=== PATIENT | female | born 1960 | race Caucasian/White ===

== ENCOUNTER 2020-10-10 06:12 | Outpatient (REF) | payer OTHER, SELFPAY ==
[2020-10-10 11:32] LABS: Estimated Average Glucose 214 mg/dL; Hemoglobin A1c % 9.1 %
[2020-10-10 11:50] LABS: Alanine Aminotransferase 18 U/L (0-31); Anion Gap 16 (12-20); Aspartate Amino Transferase 16 U/L (5-31); Blood Urea Nitrogen 14 mg/dL (9-16); Calcium 9.6 mg/dL (8.4-10.2); Carbon Dioxide 27 mmol/L (22-29); Chloride 105 mmol/L (96-108); Cholesterol 199 mg/dL; Estimated Glomerular Filt Rate > 60; Glucose Fasting 162 mg/dL (60-99); HDL Cholesterol 48 mg/dL; LDL Cholesterol Calculated 113 mg/dl; Potassium 4.5 mmol/l (3.3-5.1); Sodium 143 mmol/L (135-145); Triglycerides 191 mg/dL
[2020-10-10 11:51] LABS: Creatinine Urine 56.44 mg/dL; Microalbum/Creatinine Ratio Ur 58.4 ug/mg cr
== END 2020-10-10 06:13 | disposition home or self-care (01) ==
LOC: HO.HMGCLDS 06:12
PROVIDERS: PCP Internal Medicine; Visit Provider Internal Medicine
DX: E11.29 Type 2 diabetes mellitus with other diabetic kidney complication (principal)
CPT/HCPCS: 80048; 80061; 82043; 83036; 84450; 84460

== ENCOUNTER 2020-10-18 13:38 | Outpatient (REF) | payer OTHER, SELFPAY | END 2020-10-18 13:39 | disposition home or self-care (01) | LOC: HO.LAB 13:38 | PROVIDERS: Visit Provider Nurse Practitioner Family | DX: Z20.828 Contact with and (suspected) exposure to other viral communicable diseases (principal) | CPT/HCPCS: U0003 ==

== ENCOUNTER 2020-10-19 11:33 | Outpatient (REF) | payer OTHER, SELFPAY | END 2020-10-19 11:34 | disposition home or self-care (01) | LOC: HO.MAMMO 11:33 | PROVIDERS: PCP Internal Medicine; Visit Provider Internal Medicine | DX: Z13.89 Encounter for screening for other disorder (principal) ==

== ENCOUNTER 2021-01-17 06:56 | Outpatient (REF) | payer OTHER, SELFPAY ==
[2021-01-17 11:54] LABS: Alanine Aminotransferase 18 U/L (0-31); Anion Gap 15 (12-20); Aspartate Amino Transferase 15 U/L (5-31); Blood Urea Nitrogen 12 mg/dL (9-16); Calcium 8.8 mg/dL (8.4-10.2); Carbon Dioxide 26 mmol/L (22-29); Chloride 106 mmol/L (96-108); Cholesterol 161 mg/dL; Estimated Glomerular Filt Rate > 60; Glucose Fasting 139 mg/dL (60-99); HDL Cholesterol 47 mg/dL; LDL Cholesterol Calculated 91 mg/dl; Potassium 4.2 mmol/L (3.3-5.1); Sodium 143 mmol/L (135-145); Triglycerides 115 mg/dL
[2021-01-17 11:56] LABS: Microalbum/Creatinine Ratio Ur 18.9 ug/mg cr
[2021-01-17 12:15] LABS: Estimated Average Glucose 197 mg/dL; Hemoglobin A1c % 8.5 %
== END 2021-01-17 06:57 | disposition home or self-care (01) ==
LOC: HO.HMGCLDS 06:56
PROVIDERS: PCP Internal Medicine; Visit Provider Internal Medicine
DX: E11.29 Type 2 diabetes mellitus with other diabetic kidney complication (principal); E11.65 Type 2 diabetes mellitus with hyperglycemia; E78.5 Hyperlipidemia, unspecified; I10 Essential (primary) hypertension
CPT/HCPCS: 36415; 80048; 80061; 82043; 83036; 84450; 84460

== ENCOUNTER 2021-03-28 16:09 | Outpatient (REF) | payer OTHER, SELFPAY ==
--- NOTE | ~2021-03-28 | MM_ITS ---
EXAMINATION: MM SCREENING DIGITAL BREAST TOMOSYNTHESIS, BILATERAL CLINICAL INFORMATION: Screening. Asymptomatic. The lifetime risk of breast cancer based on the Tyrer-Cuzick Model is 10%. COMPARISON: Mammography: 09/15/2019; outside exams 01/25/2017, 11/03/2015 ([facility]) TECHNIQUE: Digital breast tomosynthesis is performed in both the craniocaudal and mediolateral oblique views along with computer-aided detection (CAD). Synthesized 2D images are generated from the tomosynthesis. FINDINGS: There are scattered areas of fibroglandular density (ACR BI-RADS breast composition Category b). There are no significant masses, abnormal calcifications, or other abnormalities. Parenchymal pattern is similar to prior exams. Again, there are biopsy clip markers mid upper left breast and central outer right breast. No developing density. The axilla and skin contours are unremarkable. MM/MM tomosynthesis screening BI IMPRESSION: No mammographic evidence of malignancy. ASSESSMENT: BI-RADS 1: Negative RECOMMENDATION: Routine annual mammography screening. This patient's information was entered into a reminder system with a target due date for their next mammogram.
== END 2021-03-28 16:10 | disposition home or self-care (01) ==
LOC: HO.MAMMO 16:09
PROVIDERS: Visit Provider Internal Medicine
DX: Z12.31 Encounter for screening mammogram for malignant neoplasm of breast (principal)
CPT/HCPCS: 77063; 77067

== ENCOUNTER 2021-04-19 06:04 | Outpatient (REF) | payer OTHER, SELFPAY ==
[2021-04-19 11:56] LABS: Estimated Average Glucose 197 mg/dL; Hemoglobin A1c % 8.5 %
[2021-04-19 12:12] LABS: Alanine Aminotransferase 17 U/L (0-31); Anion Gap 15 (12-20); Aspartate Amino Transferase 13 U/L (5-31); Blood Urea Nitrogen 20 mg/dL (9-16); Calcium 9.7 mg/dL (8.4-10.2); Carbon Dioxide 26 mmol/L (22-29); Chloride 105 mmol/L (96-108); Cholesterol 169 mg/dL; Estimated Glomerular Filt Rate > 60; Glucose Fasting 142 mg/dL (60-99); HDL Cholesterol 52 mg/dL; LDL Cholesterol Calculated 98 mg/dl; Potassium 4.4 mmol/L (3.3-5.1); Sodium 142 mmol/L (135-145); Triglycerides 99 mg/dL
== END 2021-04-19 06:05 | disposition home or self-care (01) ==
LOC: HO.HMGCLDS 06:04
PROVIDERS: PCP Internal Medicine; Visit Provider Internal Medicine
DX: E11.65 Type 2 diabetes mellitus with hyperglycemia (principal); I10 Essential (primary) hypertension; E78.5 Hyperlipidemia, unspecified
CPT/HCPCS: 36415; 80048; 80061; 83036; 84450; 84460

== ENCOUNTER 2021-08-24 06:07 | Outpatient (REF) | payer OTHER, SELFPAY ==
[2021-08-24 11:45] LABS: Estimated Average Glucose 174 mg/dL; Hemoglobin A1c % 7.7 %
[2021-08-24 12:04] LABS: Alanine Aminotransferase 15 U/L (0-31); Anion Gap 13 (12-20); Aspartate Amino Transferase 15 U/L (5-31); Blood Urea Nitrogen 13 mg/dL (9-16); Calcium 9.3 mg/dL (8.4-10.2); Carbon Dioxide 24 mmol/L (22-29); Chloride 109 mmol/L (96-108); Cholesterol 143 mg/dL; Estimated Glomerular Filt Rate > 60; Glucose Fasting 128 mg/dL (60-99); HDL Cholesterol 55 mg/dL; LDL Cholesterol Calculated 73 mg/dl; Potassium 4.2 mmol/L (3.3-5.1); Sodium 142 mmol/L (135-145); Triglycerides 75 mg/dL
== END 2021-08-24 06:08 | disposition home or self-care (01) ==
LOC: HO.HMGCLDS 06:07
PROVIDERS: PCP Internal Medicine; Visit Provider Internal Medicine
DX: E11.65 Type 2 diabetes mellitus with hyperglycemia (principal); E78.5 Hyperlipidemia, unspecified; I10 Essential (primary) hypertension
CPT/HCPCS: 36415; 80048; 80061; 83036; 84450; 84460

== ENCOUNTER 2022-04-23 08:11 | Outpatient (REF) | payer OTHER, SELFPAY ==
[2022-04-23 11:50] LABS: Alanine Aminotransferase 17 U/L (0-31); Anion Gap 13 (12-20); Aspartate Amino Transferase 14 U/L (5-31); Blood Urea Nitrogen 17 mg/dL (9-16); Carbon Dioxide 26 mmol/L (22-29); Chloride 108 mmol/L (96-108); Cholesterol 170 mg/dL; Estimated Average Glucose 174 mg/dL; Estimated Glomerular Filt Rate > 60; Glucose Fasting 156 mg/dL (60-99); HDL Cholesterol 47 mg/dL; Hemoglobin A1c % 7.7 %; LDL Cholesterol Calculated 105 mg/dl; Potassium 4.3 mmol/L (3.3-5.1); Sodium 143 mmol/L (135-145); Triglycerides 94 mg/dL
[2022-04-23 12:13] LABS: Vitamin D 25-OH Total 34.6 ng/mL (>30)
== END 2022-04-23 08:12 | disposition home or self-care (01) ==
LOC: HO.HMGCLDS 08:11
PROVIDERS: PCP Internal Medicine; Visit Provider Internal Medicine
DX: E11.65 Type 2 diabetes mellitus with hyperglycemia (principal); E78.5 Hyperlipidemia, unspecified; I10 Essential (primary) hypertension
CPT/HCPCS: 36415; 80048; 80061; 82306; 83036; 84450; 84460

== ENCOUNTER 2022-07-30 06:29 | Outpatient (REF) | payer OTHER, SELFPAY ==
[2022-07-30 12:09] LABS: Estimated Average Glucose 180 mg/dL; Hemoglobin A1c % 7.9 %
[2022-07-30 12:35] LABS: Alanine Aminotransferase 14 U/L (0-31); Anion Gap 14 (12-20); Aspartate Amino Transferase 14 U/L (5-31); Blood Urea Nitrogen 18 mg/dL (9-16); Calcium 9.6 mg/dL (8.4-10.2); Carbon Dioxide 26 mmol/L (22-29); Chloride 106 mmol/L (96-108); Cholesterol 163 mg/dL; Estimated Glomerular Filt Rate > 60; Glucose Fasting 146 mg/dL (60-99); HDL Cholesterol 59 mg/dL; LDL Cholesterol Calculated 90 mg/dl; Sodium 142 mmol/L (135-145); Triglycerides 74 mg/dL
[2022-07-30 12:35] LABS: Creatinine Urine 42.47 mg/dL; Microalbum/Creatinine Ratio Ur 58.8 ug/mg cr
== END 2022-07-30 06:30 | disposition home or self-care (01) ==
LOC: HO.HMGCLDS 06:29
PROVIDERS: PCP Internal Medicine; Visit Provider Internal Medicine
DX: E11.29 Type 2 diabetes mellitus with other diabetic kidney complication (principal); E11.65 Type 2 diabetes mellitus with hyperglycemia; E78.5 Hyperlipidemia, unspecified; I10 Essential (primary) hypertension
CPT/HCPCS: 36415; 80048; 80061; 82043; 82550; 83036; 84450; 84460

== ENCOUNTER 2023-04-01 06:05 | Outpatient (REF) | payer OTHER, SELFPAY ==
[2023-04-01 11:39] LABS: Estimated Average Glucose 177 mg/dL; Hemoglobin A1c % 7.8 %
[2023-04-01 11:54] LABS: Alanine Aminotransferase 14 U/L (0-31); Anion Gap 12 (12-20); Aspartate Amino Transferase 14 U/L (5-31); Blood Urea Nitrogen 17 mg/dL (9-16); Calcium 9.5 mg/dL (8.4-10.2); Carbon Dioxide 27 mmol/L (22-29); Chloride 106 mmol/L (96-108); Cholesterol 160 mg/dL; Estimated Glomerular Filt Rate > 60; Glucose Fasting 145 mg/dL (60-99); HDL Cholesterol 54 mg/dL; LDL Cholesterol Calculated 89 mg/dl; Potassium 4.3 mmol/L (3.3-5.1); Sodium 141 mmol/L (135-145); Triglycerides 88 mg/dL
[2023-04-01 12:06] LABS: Creatinine Urine 63.57 mg/dL; Microalbum/Creatinine Ratio Ur 59.7 ug/mg cr
== END 2023-04-01 06:06 | disposition home or self-care (01) ==
LOC: HO.HMGCLDS 06:05
PROVIDERS: PCP Internal Medicine; Visit Provider Internal Medicine
DX: Z00.01 Encounter for general adult medical examination with abnormal findings (principal); E11.65 Type 2 diabetes mellitus with hyperglycemia; E78.5 Hyperlipidemia, unspecified; I10 Essential (primary) hypertension
CPT/HCPCS: 36415; 80048; 80061; 82043; 83036; 84450; 84460

== ENCOUNTER 2023-08-06 11:01 | Outpatient (AMB) | payer OTHER, SELFPAY ==
--- NOTE | 2023-08-06 11:12 | A.OFFPC_ITS ---
Vital Signs 08/06/23 11:29 Height 5 ft 10 in Weight 199 lb BMI 28.6 BP 120/70 Blood Pressure Location Rt brachial Position Sitting Pulse 64 Pulse Source Pulse Oximeter Pulse Oximetry (%) 96 Oxygen Delivery Method Room Air Intake Visit Reasons: PE Intake Note: Pt is here today for her PE Allergies No Known Allergies Allergy (Verified 08/06/23 11:35) Medication List - Last Reconciled 08/06/23 by Kimber Hermosillo MD empagliflozin (Jardiance) 25 mg PO QAM lisinopril 5 mg PO DAILY metformin 1,000 mg PO BID 30 days multivitamin 1 tab PO DAILY omega-3 fatty acids (Fish Oil Concentrate) 1,000 mg PO DAILY pioglitazone 15 mg PO DAILY 3 months simvastatin 20 mg PO BEDTIME Tobacco use date assessed: 08/06/23 Dental Screening Dental Screen Date: 08/06/23 Did you have a dental visit in the last 12 months?: Yes Did you have a dental problem in the last 6 months where you did not have access to dental care?: No Was dental information given to patient?: Patient has dentist HPI PE HPI Details 62-year-old lady here today for her phys ical exam. She has diabetes mellitus, dyslipidemia, hypertension, currently compliant with medications. She goes to Dr. Barber for her cervical cancer screening and pelvic exam, currently up-to-date. She is overdue for her screening mammogram, but up-to-date with her bone density scan done 12/10/2022, which showed osteopenia in AP spine, total hip and femoral neck. Cologuard test was supposed to be done in last year's physical but patient did not do test. [facility] Medical History (Updated 08/06/23 @ 12:08 by Kimber Hermosillo MD) Osteopenia of multiple sites Annual visit for general adult medical examination with abnormal findings URI (upper respiratory infection) Type 2 diabetes mellitus with hyperglycemia, without long-term current use of insulin Type 2 diabetes mellitus with other diabetic kidney complication White matter disease, unspecified Narrow angle glaucoma suspect of both eyes Essential hypertension Dyslipidemia Surgical History History of hand surgery History of colonoscopy Family History Father HTN (hypertension) Glaucoma History of CVA (cerebrovascular accident) Bladder cancer Stroke Mother HTN (hypertension) Seizure Brother No problems noted. Sister No problems noted. Sister No problems noted. Daughter No problems noted. Daughter No problems noted. Social History Housing: House Unable to assess alcohol history related to: Refusing to respond Alcohol intake: current Patient Tobacco Use Status: Former Tobacco user Years Smoked: 23 yrs e-Cigarette/Vaping Use: Never Used Current occupational status: employed Cognitive needs: No Hearing needs: No Vision needs: No Questionnaire PHQ-9 Over the last 2 weeks, how often have you been bothered by any of the following problems? 1. Little interest or pleasure in doing things: not at all 2. Feeling down, depressed, or hopeless: not at all 3. Trouble falling or staying asleep, or sleeping too much: not at all 4. Feeling tired or having little energy: not at all 5. Poor appetite or overeating: not at all 6. Feeling bad about yourself - or that you are a failure or have let yourself or your family down: not at all 7. Trouble concentrating on things, such as reading the newspaper or watching television: not at all 8. Moving or speaking so slowly that other people could have noticed. Or the opposite - being so fidgety or restless that you have been moving around a lot more than usual: not at all 9. Thoughts that you would be better off or of hurting yourself in some way: not at all Total score: 0 Depression Screening Interpretation: Negative 50963 - PHQ-9 Billing: Yes Source: Developed by Drs. Michael Whitten, Jasmine Rai, Derrick Youngblood and colleagues, with an educational jackie from [employer]. Thrive Questionnaire Date Thrive assessed: 08/06/23 I am a: Patient What is your living situation today?: I have a steady place to live Within the past 12 months, did the food you bought not last and you didn't have the money to get more?: Never true Within the past 12 months, did you worry whether your food would run out before you got money to buy more?: Never true Do you have trouble paying for medicines?: No Do you have trouble getting transportation to medical appointments?: No Do you have trouble paying your heating and electricity bill?: No Do you have trouble taking care of your child, family member or friend?: No Do you have trouble with day-to-day activities such as bathing, preparing meals, shopping, managing finances, etc.?: No Are you currently unemployed and looking for a job?: No Are you interested in more education?: No AUDIT C Alcohol Use Questionnaire (AUDIT-C) 1. How often do you have a drink containing alcohol?: Never Total Score: 0 JOSE MARTIN-7 AMB Questionnaire JOSE MARTIN-7 Date JOSE MARTIN - 7 assessed: 08/06/23 Feeling nervous, anxious, or on edge: 0 = Not at all Not being able to stop or control worryin = Not at all Worrying too much about different things: 0 = Not at all Trouble relaxin = Not at all Being so restless that it is hard to sit still: 0 = Not at all Becoming easily annoyed or irritable: 0 = Not at all Feeling afraid as if something awful might happen: 0 = Not at all Total JOSE MARTIN-7 score (0-4 normal; 5-9 mild; 10-14 moderate; 15-21 severe): 0 Source: Developed by Drs. Michael Whitten, Jasmine Rai, Derrick Youngblood and colleagues, with an educational jackie from [employer]. JOSE MARTIN-7 Assessment Billing JOSE MARTIN-7 Assessment Tool: JOSE MARTIN-7 Assessment 32091 Review of Systems Const Denies fatigue, Denies fever(s), Denies headache(s) and Denies weakness Eyes Details: Sees Dr. Lee for her routine eye exam and diabetes retinopathy screening Denies change in vision and Denies itchy eyes ENT Denies dizziness, Denies headache(s), Denies nasal congestion, Denies nasal discharge and Denies sore throat Card Denies chest pain, Denies lightheadedness, Denies palpitations and Denies dyspnea Resp Denies chest congestion, Denies cough, Denies dyspnea and Denies wheezing GI Denies abdominal pain, Denies change in bowel habits and Denies heartburn Denies hematuria, Denies urinary frequency, Denies dysuria and Denies urinary urgency Musc Reports as per HPI Skin/Breast Denies breast swelling, Denies breast pain, Denies breast mass, Denies lesions and Denies rash Neuro Denies dizziness, Denies headache(s) and Denies weakness Psych Reports no additional complaints Endo Denies fatigue, Denies polydipsia, Denies polyuria and Denies palpitations Juvenal/Lymph Denies easy bruising Aller/Immun Denies itchy eyes, Denies seasonal rhinorrhea and Denies wheezing Physical exam (Primary Care) Vital Signs: Last Vital Signs Pulse 64 08/06/23 11:29 BP 120/70 08/06/23 11:29 Pulse Ox 96 08/06/23 11:29 Oxygen Delivery Method Room Air 08/06/23 11:29 BMI result Body Mass Index 28.6 Tobacco/Smoking Status: Tobacco use Status Tobacco use date assessed 08/06/23 08/06/23 11:24 Patient Tobacco Use Status Former Tobacco user 08/06/23 11:13 e-Cigarette/Vaping Use Never Used 08/06/23 11:13 PHQ-9: PHQ-9 Score PHQ-9: Total score 0 08/06/23 12:09 Depression Screening Interpretation: Negative Thrive Assessment: Date of Thrive Assessment Date Thrive assessed 08/06/23 08/06/23 11:13 Const Other: Alert oriented x3 General: comfortable, no acute distress and alert Orientation/consciousness: patient oriented x3 Limitations: no limitations HENMT Ears: external ears normal General nose exam: Normal external nose present Mouth: oropharynx normal and moist mucous membranes Eyes General: appearance normal, both eyes and all related structures Pupils: Equal, round and reactive pupils present Neck Neck: Yes full ROM, Yes no lymphadenopathy and Yes supple Chest Breast/axilla palpation: normal palpation of the breasts Resp Effort & Inspection: normal respiratory effort and able to speak in complete sentences Auscultation: clear to auscultation bilaterally Cardio Rate: regular rate Rhythm: regular rhythm Heart sounds: S1 normal heart sound present and S2 normal heart sound present GI Palpation (GI): Soft to palpation, nontender and no masses Auscultation: normal bowel sounds General: Yes deferred (Sees Dr. Barber for her routine Pap and pelvic exam) Back/Spine/Pelvis Back: No back tenderness Skin General skin exam: no rashes or lesions noted Neuro General: patient oriented x3, gait normal, tone normal, moves all extremities, Normal light touch and pain sensation and no focal motor deficits Cranial nerves: Yes CN's II-XII intact bilaterally and Yes Equal, round and reactive pupils present Cognition (Neuro): normal cognition Extrem General: Yes full ROM, Yes no joint enlargement, Yes no clubbing, cyanosis or edema and Yes no calf tenderness Psych Appearance: grossly normal and well kempt Mental Status: mental status grossly normal Speech and movement: Normal speech and movement present Affect: normal affect Results AMB Hemoglobin A1c AMB Hemoglobin A1c 7.8 % Last Edit by Cathy Lobato CMA on 08/06/23 11:50 Results Reviewed Results Reviewed: Laboratory Last Values Hgb A1c (Clinic) 7.8 % (4.0-6.0) H 08/06/23 11:43 RUN: 08/06/23 1132 PAGE 1 [facility] [address] [place] [id number] Splitter Operator: Julio Cesar Shah M.D. Specimen Inquiry Name: Wandy Tsang Age/Sex: 62/F : 1960 Unit#: [id number] Attend Dr: Kimber Hermosillo MD Re04/01/23 Status: DEP [facility] Disch: SPEC : [id number] BETI: 04/01/23 STATUS: COMP REQ : [id number] RECD: 04/01/[address]: Kimber Hermosillo MD COMP: 04/01/23 ENTERED: 04/01/[address]: ORDERED: Met Prof Fast, AST, ALT, Lipid Panel Test Result Flag Reference Site Sodium 141 135-145 mmol/L Potassium 4.3 3.3-5.1 mmol/L CL 106 96-108 mmol/L CO2 27 22-29 mmol/L Gap 12 12-20 BUN 17 H 9-16 mg/dL Creat 0.73 0.5-1.4 mg/dL EGFR > 60 NOTE: For -[place] individuals, multiply the result by 1.210. Chronic Kidney Disease: Estimated GFR < 60 mL/min/1.73m2 Severe Kidney Disease: Estimated GFR < 15 mL/min/1.73m2 FBS 145 H 60-99 mg/dL A fasting glucose of 126 mg/dl or greater on more than one occasion is considered diagnostic of diabetes. CA 9.5 8.4-10.2 mg/dL AST (GOT) 14 5-31 U/L ALT (GPT) 14 0-31 U/L Triglyceride 88 mg/dL Desirable Triglyceride: less than 150 mg/dL Borderline High Triglyceride 150-199 mg/dL High Triglyceride: 200-499 mg/dL Very High Triglyceride: greater than or equal to 5OO mg/dL Chol 160 mg/dL Desirable Cholesterol: less than 200 mg/dL Borderline High Cholesterol: 200-239 mg/dL High Cholesterol: greater than 239 mg/dL LDL Calculated 89 mg/dl Desirable LDL: less than 100 mg/dL Near Optimal/Above Optimal LDL: 110-129 mg/dL Borderline High LDL: 130-159 mg/dL High LDL: 160-189 mg/dL Very High LDL: greater than or equal to 190 mg/dL HDL 54 mg/dL Desirable HDL: greater than 40 mg/dL Note: This HDL assay may give artificially low results in patients with liver disease. Laboratory Tests 04/01/23 06:20 Estimat Average Glucose 177 Hemoglobin A1c % 7.8 Assessment and Plan Assessment & Plan (1) Annual visit for general adult medical examination with abnormal findings: Code(s): Z00.01 - Encounter for general adult medical examination with abnormal findings Plan: Will check appropriate labs. Recommended dental visit every 6 months and regular eye exams, . Up-to-date with her diabetes retinopathy screening. Take adequate calcium in diet and vitamin-D 3 at 2000 IU per cap once a day, in addition to weight-bearing exercises to help maintain good muscle tone and weight control. Instructed to do self-breast exam, and continue to get yearly mammogram, up-to-date together with her bone density scan. Cologuard ordered last year, but patient did not do test, refuses to do screening colonoscopy. Reminded to get her yearly flu shot and COVID booster this coming up later this month. She is up-to-date with her pneumonia vaccine, and Tdap, advised to get vaccinated against herpes zoster (2) Essential hypertension: Code(s): I10 - Essential (primary) hypertension Plan: Blood pressure at goal of less than 130/80. Continue with lisinopril 5 mg daily Reinforced importance of following a low sodium diet, getting regular exercise, and lowering stress levels. (3) Dyslipidemia: Code(s): E78.5 - Hyperlipidemia, unspecified Plan: Repeat fasting lipid panel ordered today . Continue with simvastatin 20 mg at bedtime , in addition to adherence to low-cholesterol diet and regular exercise, at least 30 minutes 3 to 4 times a week. Advised patient to make healthy food choices, eat more fruits, vegetables, whole grains, wild caught fish and low-fat dairy. Limit amount of meat and fried or fatty food products, as well as processed foods and fast foods. Follow-up scheduled with repeat fasting lipid panel in months. (4) Type 2 diabetes mellitus with hyperglycemia, without long-term current use of insulin: Code(s): E11.65 - Type 2 diabetes mellitus with hyperglycemia Plan: Hemoglobin A1c drawn today is at 7.8%, unchanged from previous visits. Stressed importance of taking medications as directed, and adhering to recommended diet and getting regular exercise. Will repeat another hemoglobin A1c in 3 months Orders: Orders Lipid Panel 08/06/23 Z00.01 - Encounter for general adult medical examination with abnormal findings, E11.65 - Type 2 diabetes mellitus with hyperglycemia, I10 - Essential (primary) hypertension, E78.5 - Hyperlipidemia, unspecified, M85.89 - Other specified disorders of bone density and structure, multiple sites AMB Hemoglobin A1c 08/06/23 E11.29 - Type 2 diabetes mellitus with other diabetic kidney complication Alanine Aminotransferase 08/06/23 Z00.01 - Encounter for general adult medical examination with abnormal findings, E11.65 - Type 2 diabetes mellitus with hyperglycemia, I10 - Essential (primary) hypertension, E78.5 - Hyperlipidemia, unspecified, M85.89 - Other specified disorders of bone density and structure, multiple sites Aspartate Amino Transferase 08/06/23 Z00.01 - Encounter for general adult medical examination with abnormal findings, E11.65 - Type 2 diabetes mellitus with hyperglycemia, I10 - Essential (primary) hypertension, E78.5 - Hyperlipidemia, unspecified, M85.89 - Other specified disorders of bone density and structure, multiple sites Basic Metabolic Panel Fasting 08/06/23 Z00.01 - Encounter for general adult medical examination with abnormal findings, E11.65 - Type 2 diabetes mellitus with hyperglycemia, I10 - Essential (primary) hypertension, E78.5 - Hyperlipidemia, unspecified, M85.89 - Other specified disorders of bone density and structure, multiple sites Vitamin D 25-OH Total 08/06/23 Z00.01 - Encounter for general adult medical examination with abnormal findings, E11.65 - Type 2 diabetes mellitus with hyperglycemia, I10 - Essential (primary) hypertension, E78.5 - Hyperlipidemia, unspecified, M85.89 - Other specified disorders of bone density and structure, multiple sites Coding Level of Care Code Est Pt Prev Care 40-64y(59913) Diagnoses Annual visit for general adult medical examination with abnormal findings Z00.01 Essential hypertension I10 Dyslipidemia E78.5 Type 2 diabetes mellitus with hyperglycemia, without long-term current use of insulin E11.65 Additional Codes JOSE MARTIN-7 Assessment Billing - JOSE MARTIN-7 Assessment Tool: JOSE MARTIN-7 Assessment [id number] ([id number])
[2023-08-06 11:29] VITALS: BP 120/70; PULSE 64; O2SAT 96; BMI 28.6
== END 2023-08-06 12:41 | disposition home or self-care (01) ==
PROVIDERS: Visit Provider Internal Medicine
DX: E11.29 Type 2 diabetes mellitus with other diabetic kidney complication (principal)
CPT/HCPCS: 83036; 99396

== ENCOUNTER 2023-08-06 12:11 | Outpatient (REF) | payer OTHER, SELFPAY ==
[2023-08-06 14:13] LABS: Alanine Aminotransferase 17 U/L (0-31); Anion Gap 16 (12-20); Aspartate Amino Transferase 16 U/L (5-31); Blood Urea Nitrogen 13 mg/dL (9-16); Calcium 10.6 mg/dL (8.4-10.2); Carbon Dioxide 27 mmol/L (22-29); Chloride 106 mmol/L (96-108); Cholesterol 161 mg/dL (<200); Estimated Glomerular Filt Rate > 60; Glucose Fasting 111 mg/dL (60-99); HDL Cholesterol 58 mg/dL (>40); LDL Cholesterol Calculated 85 mg/dL (<100); Potassium 3.9 mmol/L (3.3-5.1); Sodium 145 mmol/L (135-145); Triglycerides 93 mg/dL (<150)
== END 2023-08-06 12:12 | disposition home or self-care (01) ==
LOC: HO.HMGCLDS 12:11
PROVIDERS: PCP Internal Medicine; Visit Provider Internal Medicine
DX: Z00.01 Encounter for general adult medical examination with abnormal findings (principal); E11.65 Type 2 diabetes mellitus with hyperglycemia; E78.5 Hyperlipidemia, unspecified; I10 Essential (primary) hypertension; M85.89 Other specified disorders of bone density and structure, multiple sites
CPT/HCPCS: 36415; 80048; 80061; 82306; 84450; 84460

== ENCOUNTER 2023-11-11 06:07 | Outpatient (REF) | payer OTHER, SELFPAY ==
[2023-11-11 11:34] LABS: Estimated Average Glucose 194 mg/dL; Hemoglobin A1c % 8.4 % (<6.0)
[2023-11-11 12:02] LABS: Alanine Aminotransferase 16 U/L (0-31); Aspartate Amino Transferase 15 U/L (5-31); Cholesterol 154 mg/dL (<200); HDL Cholesterol 51 mg/dL (>40); LDL Cholesterol Calculated 88 mg/dL (<100); Triglycerides 75 mg/dL (<150)
[2023-11-12 15:28] LABS: Calcium, Ionized 5.1 mg/dL (4.7-5.5)
== END 2023-11-11 06:08 | disposition home or self-care (01) ==
LOC: HO.HMGCLDS 06:07
PROVIDERS: PCP Internal Medicine; Visit Provider Internal Medicine
DX: I10 Essential (primary) hypertension (principal); E78.5 Hyperlipidemia, unspecified; E11.29 Type 2 diabetes mellitus with other diabetic kidney complication; E11.65 Type 2 diabetes mellitus with hyperglycemia
CPT/HCPCS: 36415; 80061; 82330; 83036; 84450; 84460

== ENCOUNTER 2023-11-13 15:05 | Outpatient (AMB) | payer OTHER, SELFPAY ==
[2023-11-13 15:12] VITALS: BP 122/74; PULSE 59; O2SAT 99; BMI 28.9
--- NOTE | 2023-11-13 15:12 | A.OFFPC_ITS ---
Vital Signs 11/13/23 15:12 Height 5 ft 10 in Weight 201 lb 4 oz BMI 28.9 BP 122/74 Blood Pressure Location Lt brachial Position Sitting Pulse 59 Pulse Source Pulse Oximeter Pulse Oximetry (%) 99 Oxygen Delivery Method Room Air Intake Visit Reasons: 3 month fu Intake Note: Pt is here to follow up for lab results pt had the flu vaccine at work and will send via portal the date Allergies No Known Allergies Allergy (Verified 11/13/23 15:30) Medication List - Last Reconciled 11/13/23 by Kimber Hermosillo MD empagliflozin (Jardiance) 25 mg PO QAM lisinopril 5 mg PO DAILY metformin 1,000 mg PO BID multivitamin 1 tab PO DAILY omega-3 fatty acids (Fish Oil Concentrate) 1,000 mg PO DAILY pioglitazone 15 mg PO DAILY 3 months simvastatin 20 mg PO BEDTIME Tobacco use date assessed: 11/13/23 Dental Screening Dental Screen Date: 11/13/23 Did you have a dental visit in the last 12 months?: No Did you have a dental problem in the last 6 months where you did not have access to dental care?: No Was dental information given to patient?: No HPI 3 month fu HPI Details 62-year-old lady with hypertension, dysl ipidemia and diabetes mellitus, here today for follow-up. She has been taking her medications as directed, but has not been paying attention to her diet and has not been getting any regular exercise. Latest fasting glucose and hemoglobin A1c is higher than last check, but lipids are within normal limits. She sees Dr. Lee yearly for her diabetes retinopathy screening. [facility] Medical History Osteopenia of multiple sites Annual visit for general adult medical examination with abnormal findings URI (upper respiratory infection) Type 2 diabetes mellitus with hyperglycemia, without long-term current use of insulin Type 2 diabetes mellitus with other diabetic kidney complication White matter disease, unspecified Narrow angle glaucoma suspect of both eyes Essential hypertension Dyslipidemia Surgical History History of hand surgery History of colonoscopy Family History Father HTN (hypertension) Glaucoma History of CVA (cerebrovascular accident) Bladder cancer Stroke Mother HTN (hypertension) Seizure Brother No problems noted. Sister No problems noted. Sister No problems noted. Daughter No problems noted. Daughter No problems noted. Social History Housing: House Unable to assess alcohol history related to: Refusing to respond Alcohol intake: current Patient Tobacco Use Status: Former Tobacco user Years Smoked: 23 yrs e-Cigarette/Vaping Use: Never Used Current occupational status: employed Cognitive needs: No Hearing needs: No Vision needs: No Questionnaire PHQ-9 Over the last 2 weeks, how often have you been bothered by any of the following problems? Depression Screening Interpretation: Negative Depression Screening Done: Yes Source: Developed by Drs. Michael Whitten, Jasmine Rai, Derrick Youngblood and colleagues, with an educational jackie from [employer]. Thrive Questionnaire Date Thrive assessed: 08/06/23 JOSE MARTIN-7 AMB Questionnaire JOSE MARTIN-7 Date JOSE MARTIN - 7 assessed: 08/06/23 Source: Developed by Drs. Michael Whitten, Jasmine Rai, Derrick Youngblood and colleagues, with an educational jackie from [employer]. Review of Systems Const Denies fatigue, Denies fever(s), Denies headache(s) and Denies weakness Eyes Details: Sees Dr. Lee for her routine eye exam and diabetes retinopathy screening Denies change in vision and Denies itchy eyes ENT Denies dizziness, Denies headache(s), Denies nasal congestion, Denies nasal discharge and Denies sore throat Card Denies chest pain, Denies lightheadedness, Denies palpitations and Denies dyspnea Resp Denies chest congestion, Denies cough, Denies dyspnea and Denies wheezing GI Denies abdominal pain, Denies change in bowel habits and Denies heartburn Denies hematuria, Denies urinary frequency, Denies dysuria and Denies urinary urgency Musc Reports as per HPI Skin/Breast Denies breast swelling, Denies breast pain, Denies breast mass, Denies lesions and Denies rash Neuro Denies dizziness, Denies headache(s) and Denies weakness Psych Reports no additional complaints Endo Denies fatigue, Denies polydipsia, Denies polyuria and Denies palpitations Juvenal/Lymph Denies easy bruising Aller/Immun Denies itchy eyes, Denies seasonal rhinorrhea and Denies wheezing Physical exam (Primary Care) Vital Signs: Last Vital Signs Pulse 59 11/13/23 15:12 BP 122/74 11/13/23 15:12 Pulse Ox 99 11/13/23 15:12 Oxygen Delivery Method Room Air 11/13/23 15:12 BMI result Body Mass Index 28.9 Tobacco/Smoking Status: Tobacco use Status Tobacco use date assessed 11/13/23 11/13/23 15:18 Patient Tobacco Use Status Former Tobacco user 11/13/23 15:12 e-Cigarette/Vaping Use Never Used 11/13/23 15:12 Depression Screening Interpretation: Negative Thrive Assessment: Date of Thrive Assessment Date Thrive assessed 08/06/23 11/13/23 15:12 Const Other: Alert oriented x3 General: comfortable, no acute distress and alert Orientation/consciousness: patient oriented x3 Limitations: no limitations HENMT Ears: external ears normal General nose exam: Normal external nose present Mouth: oropharynx normal and moist mucous membranes Eyes General: appearance normal, both eyes and all related structures Pupils: Equal, round and reactive pupils present Neck Neck: Yes full ROM, Yes no lymphadenopathy and Yes supple Resp Effort & Inspection: normal respiratory effort and able to speak in complete sentences Auscultation: clear to auscultation bilaterally Cardio Rate: regular rate Rhythm: regular rhythm Heart sounds: S1 normal heart sound present and S2 normal heart sound present GI Palpation (GI): Soft to palpation, nontender and no masses Auscultation: normal bowel sounds Skin General skin exam: no rashes or lesions noted Neuro General: patient oriented x3, gait normal, tone normal, moves all extremities, Normal light touch and pain sensation and no focal motor deficits Cranial nerves: Yes CN's II-XII intact bilaterally and Yes Equal, round and reactive pupils present Cognition (Neuro): normal cognition Extrem General: Yes full ROM, Yes no joint enlargement, Yes no clubbing, cyanosis or edema and Yes no calf tenderness Results Reviewed Results Reviewed: Laboratory Tests 04/23/22 07/30/22 11/11/23 08:21 07:00 06:20 Sodium 143 142 Potassium 4.3 4.0 Chloride 106 Carbon Dioxide 26 Anion Gap 14 BUN 17 H 18 H Creatinine 0.74 0.71 Estimated GFR > 60 > 60 Fasting Glucose 156 H 146 H Estimat Average Glucose 174 180 194 Hemoglobin A1c % 7.7 7.9 8.4 H Calcium 10.0 D 9.6 Ionized Calcium 5.1 AST 14 14 ALT 17 14 Total Creatine Kinase 52 Triglycerides 94 74 Cholesterol 170 163 LDL Cholesterol, Calc 105 90 HDL Cholesterol 47 59 D 25-OH Vitamin D Total 34.6 Name: Wandy Tsang Age/Sex: 62/F : 1960 Unit#: [id number] Attend Dr: Kimber Hermosillo MD Re11/11/23 Status: DEP REF Location: [facility] Disch: SPEC : [id number] BETI: 11/11/23 STATUS: COMP REQ : [id number] RECD: 11/11/[address]: Kimber Hermosillo MD COMP: 11/11/23 ENTERED: 11/11/[address]: ORDERED: AST, ALT, Lipid Panel Test Result Flag Reference Site AST (GOT) 15 5-31 U/L ALT (GPT) 16 0-31 U/L Triglyceride 75 <150 mg/dL Desirable Triglyceride: less than 150 mg/dL Borderline High Triglyceride 150-199 mg/dL High Triglyceride: 200-499 mg/dL Very High Triglyceride: greater than or equal to 5OO mg/dL Cholesterol 154 <200 mg/dL Desirable Cholesterol: less than 200 mg/dL Borderline High Cholesterol: 200-239 mg/dL High Cholesterol: greater than 239 mg/dL LDL Calculated 88 <100 mg/dL Desirable LDL: less than 100 mg/dL Near Optimal/Above Optimal LDL: 110-129 mg/dL Borderline High LDL: 130-159 mg/dL High LDL: 160-189 mg/dL Very High LDL: greater than or equal to 190 mg/dL HDL 51 >40 mg/dL Desirable HDL: greater than 40 mg/dL Note: This HDL assay may give artificially low results in patients with liver disease. Assessment and Plan Assessment & Plan (1) Type 2 diabetes mellitus with hyperglycemia, without long-term current use of insulin: Code(s): E11.65 - Type 2 diabetes mellitus with hyperglycemia Plan: Diabetes mellitus poorly controlled, now with A1c at 8.4%. Will continue on metformin and Jardiance at same dose, but pioglitazone dose increased to 30 mg daily. Stressed importance of adhering to recommended diet and getting regular exercise. Up-to-date with her diabetes retinopathy screening. Will see her back for follow-up after fasting labs done in March 2024 (2) Essential hypertension: Code(s): I10 - Essential (primary) hypertension Plan: Blood pressure at goal of less than 130/80. Continue with current medication. Reinforced importance of following a low sodium diet, getting regular exercise, and lowering stress levels. (3) Dyslipidemia: Code(s): E78.5 - Hyperlipidemia, unspecified Plan: Fasting lipids are within normal limits, continued on simvastatin 20 mg at bedtime recheck fasting lipids in March 2024 Orders: Orders Hemoglobin A1c 03/01/24 E11.65 - Type 2 diabetes mellitus with hyperglycemia, E78.5 - Hyperlipidemia, unspecified, I10 - Essential (primary) hypertension Aspartate Amino Transferase 03/01/24 E11.65 - Type 2 diabetes mellitus with hyperglycemia, E78.5 - Hyperlipidemia, unspecified, I10 - Essential (primary) hypertension Basic Metabolic Panel Fasting 03/01/24 E11.65 - Type 2 diabetes mellitus with hyperglycemia, E78.5 - Hyperlipidemia, unspecified, I10 - Essential (primary) hypertension Lipid Panel 03/01/24 E11.65 - Type 2 diabetes mellitus with hyperglycemia, E78.5 - Hyperlipidemia, unspecified, I10 - Essential (primary) hypertension Microalbumin, Random (w Creat) 03/01/24 E11.65 - Type 2 diabetes mellitus with hyperglycemia, E78.5 - Hyperlipidemia, unspecified, I10 - Essential (primary) hypertension Alanine Aminotransferase 03/01/24 E11.65 - Type 2 diabetes mellitus with hyperglycemia, E78.5 - Hyperlipidemia, unspecified, I10 - Essential (primary) hypertension Medications: Changed From pioglitazone 15 mg PO DAILY 3 months 90 tabs 1RF E11.65 - Type 2 diabetes mellitus with hyperglycemia To pioglitazone 30 mg PO DAILY 3 months 90 tabs 1RF E11.65 - Type 2 diabetes mellitus with hyperglycemia Refilled lisinopril 5 mg PO DAILY 90 caps 4RF Coding Level of Care Code Est Pt Level 4 (27052) Diagnoses Type 2 diabetes mellitus with hyperglycemia, without long-term current use of in sulin E11.65 Essential hypertension I10 Dyslipidemia E78.5
== END 2023-11-13 15:53 | disposition home or self-care (01) ==
PROVIDERS: PCP Internal Medicine; Visit Provider Internal Medicine
DX: E11.65 Type 2 diabetes mellitus with hyperglycemia (principal); I10 Essential (primary) hypertension; E78.5 Hyperlipidemia, unspecified
CPT/HCPCS: 99214

== ENCOUNTER 2024-01-01 10:26 | Outpatient (AMB) | payer OTHER, SELFPAY ==
[2024-01-01 10:28] VITALS: BP 120/76; PULSE 85; TEMP 36.4; O2SAT 97; BMI 28.6
--- NOTE | 2024-01-01 10:28 | AM.OFFWIN_ITS ---
Intake Vital Signs 01/01/24 10:28 Height 5 ft 10 in Weight 199 lb BMI 28.6 BP 120/76 Blood Pressure Location Lt brachial Position Sitting Pulse 85 Pulse Source Pulse Oximeter Temp 97.6 F Temp Source Temporal Artery Scan Pulse Oximetry (%) 97 Oxygen Delivery Method Room Air Intake Visit Reasons: EP Cough, headache, congestion [phone] Intake Note: pt is here today for cough headache congestion started friday Patient Tobacco Use Status: Former Tobacco user Allergies No Known Allergies Allergy (Verified 01/01/24 10:30) Do you need a note to return to daycare/school/sports/work: Yes (RETURN FRIDAY) Return to daycare/school/sports/work/other note: work HPI HPI Comments History of Present Illness Details 63 y/o female patient who presents to [facility] in clinic with c/o URI symptoms. She reports cough, chest tightness, headache and fatigue. Reports that symptoms started Friday. [facility] Medical History Osteopenia of multiple sites Annual visit for general adult medical examination with abnormal findings URI (upper respiratory infection) Type 2 diabetes mellitus with hyperglycemia, without long-term current use of insulin Type 2 diabetes mellitus with other diabetic kidney complication White matter disease, unspecified Narrow angle glaucoma suspect of both eyes Essential hypertension Dyslipidemia Surgical History History of hand surgery History of colonoscopy Family History Father HTN (hypertension) Glaucoma History of CVA (cerebrovascular accident) Bladder cancer Stroke Mother HTN (hypertension) Seizure Brother No problems noted. Sister No problems noted. Sister No problems noted. Daughter No problems noted. Daughter No problems noted. Social History Housing: House Unable to assess alcohol history related to: Refusing to respond Alcohol intake: current Patient Tobacco Use Status: Former Tobacco user Years Smoked: 23 yrs e-Cigarette/Vaping Use: Never Used Current occupational status: employed Cognitive needs: No Hearing needs: No Vision needs: No Review of Systems Const All systems reviewed & are unremarkable except as noted in HPI and below Physical Exam Vital Signs: Last Vital Signs Temp 97.6 F 01/01/24 10:28 Pulse 85 01/01/24 10:28 BP 120/76 01/01/24 10:28 Pulse Ox 97 01/01/24 10:28 Oxygen Delivery Method Room Air 01/01/24 10:28 BMI result Body Mass Index 28.6 Const General: comfortable HEENT Head: Yes normocephalic Ears: external ears normal and TM's normal bilaterally General nose exam: Normal external nose present and Normal nasal mucous membranes and turbinates present Face and sinus: Yes sinuses nontender Mouth: oropharynx normal and moist mucous membranes Throat: Yes posterior oropharynx normal and Yes uvula midline Resp Effort & Inspection: normal respiratory effort Auscultation: clear to auscultation bilaterally Cardio Rate: regular rate Rhythm: regular rhythm Assessment & Plan Assessment & Plan (1) Upper respiratory infection: Code(s): J06.9 - Acute upper respiratory infection, unspecified Qualifiers: Pharyngitis/tonsillitis etiology: other specified organisms URI type: acute pharyngitis Qualified Code(s): J02.8 - Acute pharyngitis due to other specified organisms Plan: - Rest - Warm fluids - OTC cold remedies. Orders: Orders SARS-CoV2/FLU/RSV Today J02.8 - Acute pharyngitis due to other specified organisms Coding Level of Care Code Est Pt Level 3 (60568) Diagnoses Acute pharyngitis due to other specified organisms J02.8 Pharyngitis/tonsillitis etiology: other specified organisms URI type: acute pharyngitis Time Spent (min) 15
== END 2024-01-01 11:12 | disposition home or self-care (01) ==
PROVIDERS: PCP Internal Medicine; Visit Provider Nurse Practitioner Family
DX: J02.9 Acute pharyngitis, unspecified (principal)
CPT/HCPCS: 99213

== ENCOUNTER 2024-01-01 13:20 | Outpatient (REF) | payer OTHER, SELFPAY ==
[2024-01-01 14:25] LABS: Influenza A PCR NEGATIVE (Negative); Influenza B PCR NEGATIVE (Negative); Resp Syncy Virus RNA Qual PCR NEGATIVE (Negative); SARS COV2 PCR INHOUSE NEGATIVE (Negative)
== END 2024-01-01 13:21 | disposition home or self-care (01) ==
LOC: HO.LNP 13:20
PROVIDERS: Visit Provider Nurse Practitioner Family
DX: Z11.52 Encounter for screening for COVID-19 (principal); Z20.822 Contact with and (suspected) exposure to COVID-19; J02.8 Acute pharyngitis due to other specified organisms
CPT/HCPCS: 0241U

== ENCOUNTER 2024-03-16 06:03 | Outpatient (REF) | payer OTHER, SELFPAY ==
[2024-03-16 10:57] LABS: Estimated Average Glucose 192 mg/dL; Hemoglobin A1c % 8.3 % (<6.0)
[2024-03-16 11:02] LABS: Alanine Aminotransferase 16 U/L (0-31); Anion Gap 12 (12-20); Aspartate Amino Transferase 13 U/L (5-31); Blood Urea Nitrogen 16 mg/dL (9-16); Calcium 9.6 mg/dL (8.4-10.2); Carbon Dioxide 27 mmol/L (22-29); Chloride 105 mmol/L (96-108); Cholesterol 153 mg/dL (<200); Estimated Glomerular Filt Rate > 60; Glucose Fasting 140 mg/dL (60-99); HDL Cholesterol 48 mg/dL (>40); LDL Cholesterol Calculated 80 mg/dL (<100); Potassium 3.6 mmol/L (3.3-5.1); Sodium 140 mmol/L (135-145); Triglycerides 125 mg/dL (<150)
[2024-03-16 11:04] LABS: Microalbum/Creatinine Ratio Ur 37.2 ug/mg cr (<30)
== END 2024-03-16 06:04 | disposition home or self-care (01) ==
LOC: HO.HMGCLDS 06:03
PROVIDERS: PCP Internal Medicine; Visit Provider Internal Medicine
DX: E11.65 Type 2 diabetes mellitus with hyperglycemia (principal); I10 Essential (primary) hypertension; E78.5 Hyperlipidemia, unspecified
CPT/HCPCS: 36415; 80048; 80061; 82043; 82570; 83036; 84450; 84460

== ENCOUNTER 2024-03-23 10:02 | Outpatient (AMB) | payer OTHER, SELFPAY ==
--- NOTE | 2024-03-23 10:10 | A.OFFPC_ITS ---
Vital Signs 03/23/24 10:21 Height 5 ft 10 in Weight 202 lb BMI 29.0 BP 118/60 Blood Pressure Location Rt brachial Position Sitting Pulse 78 Pulse Source Pulse Oximeter Pulse Oximetry (%) 96 Oxygen Delivery Method Room Air Intake Visit Reasons: f/u labs Intake Note: Pt is here today for her f/u labs Allergies No Known Allergies Allergy (Verified 03/23/24 10:50) Medication List - Last Reconciled 03/23/24 by Kimber Hermosillo MD empagliflozin (Jardiance) 25 mg PO QAM lisinopril 5 mg PO DAILY metformin 1,000 mg PO BID multivitamin 1 tab PO DAILY omega-3 fatty acids (Fish Oil Concentrate) 1,000 mg PO DAILY pioglitazone 15 mg PO DAILY simvastatin 20 mg PO BEDTIME Tobacco use date assessed: 03/23/24 Dental Screening Dental Screen Date: 03/23/24 HPI f/u labs HPI Details 63-year-old lady here today for follow-u p on her diabetes mellitus, hypertension hyperlipidemia. Has been compliant with taking all her medications but admits to not following recommended diet, works in the kitchen and snacks frequently. She also has not been getting any regular exercise lately. She also forgot that she was supposed to take 30 mg of pioglitazone instead of 15 mg daily. [facility] Medical History Osteopenia of multiple sites Annual visit for general adult medical examination with abnormal findings URI (upper respiratory infection) Type 2 diabetes mellitus with hyperglycemia, without long-term current use of insulin Type 2 diabetes mellitus with other diabetic kidney complication White matter disease, unspecified Narrow angle glaucoma suspect of both eyes Essential hypertension Dyslipidemia Surgical History History of hand surgery History of colonoscopy Family History Father HTN (hypertension) Glaucoma History of CVA (cerebrovascular accident) Bladder cancer Stroke Mother HTN (hypertension) Seizure Brother No problems noted. Sister No problems noted. Sister No problems noted. Daughter No problems noted. Daughter No problems noted. Social History Housing: House Unable to assess alcohol history related to: Refusing to respond Alcohol intake: current Patient Tobacco Use Status: Former Tobacco user Years Smoked: 23 yrs e-Cigarette/Vaping Use: Never Used Current occupational status: employed Cognitive needs: No Hearing needs: No Vision needs: No Questionnaire PHQ-9 Over the last 2 weeks, how often have you been bothered by any of the following problems? 1. Little interest or pleasure in doing things: not at all 2. Feeling down, depressed, or hopeless: not at all 3. Trouble falling or staying asleep, or sleeping too much: not at all 4. Feeling tired or having little energy: not at all 5. Poor appetite or overeating: not at all 6. Feeling bad about yourself - or that you are a failure or have let yourself or your family down: not at all 7. Trouble concentrating on things, such as reading the newspaper or watching television: not at all 8. Moving or speaking so slowly that other people could have noticed. Or the opposite - being so fidgety or restless that you have been moving around a lot more than usual: not at all 9. Thoughts that you would be better off or of hurting yourself in some way: not at all Total score: 0 Depression Screening Interpretation: Negative Depression Screening Done: Yes 54110 - PHQ-9 Billing: Yes Source: Developed by Drs. Michael Whitten, Jasmine Rai, Derrick Youngblood and colleagues, with an educational jackie from [employer]. Thrive Questionnaire Date Thrive assessed: 03/23/24 I am a: Patient What is your living situation today?: I have a steady place to live Within the past 12 months, did the food you bought not last and you didn't have the money to get more?: Never true Within the past 12 months, did you worry whether your food would run out before you got money to buy more?: Never true Do you have trouble paying for medicines?: No Do you have trouble getting transportation to medical appointments?: No Do you have trouble paying your heating and electricity bill?: No Do you have trouble taking care of your child, family member or friend?: No Do you have trouble with day-to-day activities such as bathing, preparing meals, shopping, managing finances, etc.?: No Are you currently unemployed and looking for a job?: No Are you interested in more education?: No THRIVE Score: 0 AUDIT C Alcohol Use Questionnaire (AUDIT-C) 1. How often do you have a drink containing alcohol?: Monthly or less 2. How many drinks containing alcohol do you have on a typical day when you are drinking?: 1 or 2 3. How often do you have six or more drinks on one occasion?: Never Total Score: 1 JOSE MARTIN-7 AMB Questionnaire JOSE MARTIN-7 Date JOSE MARTIN - 7 assessed: 03/23/24 Feeling nervous, anxious, or on edge: 0 = Not at all Not being able to stop or control worryin = Not at all Worrying too much about different things: 0 = Not at all Trouble relaxin = Not at all Being so restless that it is hard to sit still: 0 = Not at all Becoming easily annoyed or irritable: 0 = Not at all Feeling afraid as if something awful might happen: 0 = Not at all Total JOSE MARTIN-7 score (0-4 normal; 5-9 mild; 10-14 moderate; 15-21 severe): 0 Source: Developed by Drs. Michael Whitten, Jasmine Rai, Derrick Youngblood and colleagues, with an educational jackie from [employer]. JOSE MARTIN-7 Assessment Billing JOSE MARTIN-7 Assessment Tool: JOSE MARTIN-7 Assessment 48150 Review of Systems Const All systems reviewed & are unremarkable except as noted in HPI and below Denies fatigue, Denies fever(s), Denies headache(s) and Denies weakness Eyes Details: Sees Dr. Lee for her routine eye exam and diabetes retinopathy screening Denies change in vision and Denies itchy eyes ENT Denies dizziness, Denies headache(s), Reports nasal congestion, Reports nasal discharge, Reports post nasal drip, Denies sinus pain, Denies sinus pressure and Denies sore throat Card Denies chest pain, Denies lightheadedness, Denies palpitations and Denies dyspnea Resp Denies chest congestion, Denies cough, Denies dyspnea and Denies wheezing GI Denies abdominal pain, Denies change in bowel habits and Denies heartburn Denies hematuria, Denies urinary frequency, Denies dysuria and Denies urinary urgency Musc Reports as per HPI Skin/Breast Denies breast swelling, Denies breast pain, Denies breast mass, Denies lesions and Denies rash Neuro Denies dizziness, Denies headache(s) and Denies weakness Psych Reports no additional complaints Endo Denies fatigue, Denies polydipsia, Denies polyuria and Denies palpitations Juvenal/Lymph Denies easy bruising Aller/Immun Denies itchy eyes, Denies seasonal rhinorrhea and Denies wheezing Physical exam (Primary Care) Vital Signs: Last Vital Signs Pulse 78 03/23/24 10:21 BP 118/60 03/23/24 10:21 Pulse Ox 96 03/23/24 10:21 Oxygen Delivery Method Room Air 03/23/24 10:21 BMI result Body Mass Index 29.0 Tobacco/Smoking Status: Tobacco use Status Tobacco use date assessed 03/23/24 03/23/24 10:30 Patient Tobacco Use Status Former Tobacco user 03/23/24 10:10 e-Cigarette/Vaping Use Never Used 03/23/24 10:10 PHQ-9: PHQ-9 Score PHQ-9: Total score 0 03/23/24 10:49 Depression Screening Interpretation: Negative Thrive Assessment: Date of Thrive Assessment Date Thrive assessed 03/23/24 03/23/24 10:22 Const Other: Alert oriented x3 General: comfortable, no acute distress and alert Orientation/consciousness: patient oriented x3 HENMT Ears: external ears normal General nose exam: Normal external nose present and Abnormal mucous membranes and turbinates present boggy and pale Mouth: oropharynx normal and moist mucous membranes Eyes General: appearance normal, both eyes and all related structures Pupils: Equal, round and reactive pupils present Neck Neck: Yes full ROM, Yes no lymphadenopathy and Yes supple Resp Effort & Inspection: normal respiratory effort and able to speak in complete sentences Auscultation: clear to auscultation bilaterally Cardio Rate: regular rate Rhythm: regular rhythm Heart sounds: S1 normal heart sound present and S2 normal heart sound present GI Palpation (GI): Soft to palpation, nontender and no masses Auscultation: normal bowel sounds Skin General skin exam: no rashes or lesions noted Neuro General: patient oriented x3, gait normal, tone normal, moves all extremities, Normal light touch and pain sensation and no focal motor deficits Cranial nerves: Yes CN's II-XII intact bilaterally and Yes Equal, round and reactive pupils present Cognition (Neuro): normal cognition Extrem General: Yes full ROM, Yes no joint enlargement, Yes no clubbing, cyanosis or edema and Yes no calf tenderness Psych Appearance: grossly normal and well kempt Mental Status: mental status grossly normal Speech and movement: Normal speech and movement present Affect: normal affect Results Reviewed Results Reviewed: Name: Wandy Tsang Age/Sex: 63/F : 1960 Unit#: [id number] Attend Dr: Kimber Hermosillo MD Re03/16/24 Status: DEP REF Location: [facility] Disch: SPEC : [id number] BETI: 03/16/24 STATUS: COMP REQ : [id number] RECD: 03/16/24-[address]: Kimber Hermosillo MD COMP: 03/16/24 ENTERED: 03/16/24-[address]: ORDERED: Met Prof Fast, AST, ALT, Lipid Panel Test Result Flag Reference Sodium 140 135-145 mmol/L Potassium 3.6 3.3-5.1 mmol/L CL 105 96-108 mmol/L CO2 27 22-29 mmol/L Gap 12 12-20 BUN 16 9-16 mg/dL Creat 0.70 0.5-1.4 mg/dL EGFR > 60 NOTE: For -Japanese individuals, multiply the result by 1.210. Chronic Kidney Disease: Estimated GFR < 60 mL/min/1.73m2 Severe Kidney Disease: Estimated GFR < 15 mL/min/1.73m2 FBS 140 H 60-99 mg/dL A fasting glucose of 126 mg/dl or greater on more than one occasion is considered diagnostic of diabetes. CA 9.6 # 8.4-10.2 mg/dL AST (GOT) 13 5-31 U/L ALT (GPT) 16 0-31 U/L Triglyceride 125 <150 mg/dL Desirable Triglyceride: less than 150 mg/dL Borderline High Triglyceride 150-199 mg/dL High Triglyceride: 200-499 mg/dL Very High Triglyceride: greater than or equal to 5OO mg/dL Cholesterol 153 <200 mg/dL Desirable Cholesterol: less than 200 mg/dL Borderline High Cholesterol: 200-239 mg/dL High Cholesterol: greater than 239 mg/dL LDL Calculated 80 <100 mg/dL Desirable LDL: less than 100 mg/dL Near Optimal/Above Optimal LDL: 110-129 mg/dL Borderline High LDL: 130-159 mg/dL High LDL: 160-189 mg/dL Very High LDL: greater than or equal to 190 mg/dL HDL 48 >40 mg/dL Desirable HDL: greater than 40 mg/dL Note: This HDL assay may give artificially low results in patients with liver disease. Laboratory Tests 03/16/24 06:18 Estimat Average Glucose 192 Hemoglobin A1c % 8.3 H Urine Creatinine 67.10 Urine Microalbumin 25.0 Microalb/Creat Ratio 37.2 H Assessment and Plan Assessment & Plan (1) Type 2 diabetes mellitus with hyperglycemia, without long-term current use of insulin: Code(s): E11.65 - Type 2 diabetes mellitus with hyperglycemia Plan: Diabetes mellitus not well controlled with hemoglobin A1c today at 8.3%.. Will continue on metformin, Jardiance and increase dose of pioglitazone to 30 mg daily. Reinforced importance of following recommended diet, and getting regular exercise, will repeat another hemoglobin A1c in August 2024 (2) Dyslipidemia: Code(s): E78.5 - Hyperlipidemia, unspecified Plan: Reviewed recent fasting lipid profile with patient with levels within normal limits . Continue simvastatin 20 mg at bedtime , in addition to adherence to low-cholesterol diet and regular exercise, at least 30 minutes 3 to 4 times a week. Advised patient to make healthy food choices, eat more fruits, vegetables, whole grains, wild caught fish and low- fat dairy. Limit amount of meat and fried or fatty food products, as well as processed foods and fast foods. Follow-up scheduled with repeat fasting lipid panel in 08/2024 (3) Essential hypertension: Code(s): I10 - Essential (primary) hypertension Plan: Blood pressure at goal of less than 130/80. Continue with current medication. Reinforced importance of following a low sodium diet, getting regular exercise, and lowering stress levels. (4) Rhinitis, allergic: Code(s): J30.9 - Allergic rhinitis, unspecified Qualifiers: Allergic rhinitis trigger: unspecified Allergic rhinitis seasonality: seasonal Qualified Code(s): J30.2 - Other seasonal allergic rhinitis Plan: Prescription sent for loratadine 10 mg daily as needed for nasal congestion runny nose. Samples given also for saline sinus rinse, instructed on proper use Orders: Orders Hemoglobin A1c 08/01/24 E11.65 - Type 2 diabetes mellitus with hyperglycemia, E78.5 - Hyperlipidemia, unspecified, I10 - Essential (primary) hypertension Basic Metabolic Panel Fasting 08/01/24 E11.65 - Type 2 diabetes mellitus with hyperglycemia, E78.5 - Hyperlipidemia, unspecified, I10 - Essential (primary) hypertension Lipid Panel 08/01/24 E11.65 - Type 2 diabetes mellitus with hyperglycemia, E78.5 - Hyperlipidemia, unspecified, I10 - Essential (primary) hypertension Alanine Aminotransferase 08/01/24 E11.65 - Type 2 diabetes mellitus with hyperglycemia, E78.5 - Hyperlipidemia, unspecified, I10 - Essential (primary) hypertension Aspartate Amino Transferase 08/01/24 E11.65 - Type 2 diabetes mellitus with hyperglycemia, E78.5 - Hyperlipidemia, unspecified, I10 - Essential (primary) hypertension Vitamin D 25-OH Total 08/01/24 E11.65 - Type 2 diabetes mellitus with hyperglycemia, E78.5 - Hyperlipidemia, unspecified, I10 - Essential (primary) hypertension Medications: New loratadine (Allergy Relief (loratadine)) 10 mg PO DAILY PRN 30 tabs 0RF allergy symptoms Coding Level of Care Code Est Pt Level 4 (96347) Diagnoses Type 2 diabetes mellitus with hyperglycemia, without long-term current use of insulin E11. Dyslipidemia E78.5 Essential hypertension I10 Seasonal allergic rhinitis, unspecified trigger J30.2 Allergic rhinitis trigger: unspecified Allergic rhinitis seasonality: seasonal Additional Codes JOSE MARTIN-7 Assessment Billing - JOSE MARTIN-7 Assessment Tool: JOSE MARTIN-7 Assessment [id number] ([id number])
[2024-03-23 10:21] VITALS: BP 118/60; PULSE 78; O2SAT 96; BMI 29.0
== END 2024-03-23 11:06 | disposition home or self-care (01) ==
PROVIDERS: PCP Internal Medicine; Visit Provider Internal Medicine
DX: E11.65 Type 2 diabetes mellitus with hyperglycemia (principal); E78.5 Hyperlipidemia, unspecified; I10 Essential (primary) hypertension; J30.2 Other seasonal allergic rhinitis
CPT/HCPCS: 99214

== ENCOUNTER 2024-08-23 06:01 | Outpatient (REF) | payer OTHER, SELFPAY ==
[2024-08-23 10:47] LABS: Estimated Average Glucose 180 mg/dL; Hemoglobin A1C 198.0289 umol/L; Hemoglobin A1c % 7.9 % (<6.0)
[2024-08-23 11:29] LABS: Alanine Aminotransferase 18 U/L (0-31); Anion Gap 12 (12-20); Aspartate Amino Transferase 15 U/L (5-31); Blood Urea Nitrogen 16 mg/dL (9-16); Carbon Dioxide 27 mmol/L (22-29); Chloride 108 mmol/L (96-108); Cholesterol 156 mg/dL (<200); Estimated Glomerular Filt Rate > 60; Glucose Fasting 144 mg/dL (60-99); HDL Cholesterol 55 mg/dL (>40); LDL Cholesterol Calculated 82 mg/dL (<100); Potassium 3.7 mmol/L (3.3-5.1); Sodium 143 mmol/L (135-145); Triglycerides 97 mg/dL (<150)
[2024-08-23 11:50] LABS: Vitamin D 25-OH Total 49.2 ng/mL (>30)
== END 2024-08-23 06:02 | disposition home or self-care (01) ==
LOC: HO.HMGCLDS 06:01
PROVIDERS: PCP Internal Medicine; Visit Provider Internal Medicine
DX: E11.65 Type 2 diabetes mellitus with hyperglycemia (principal); I10 Essential (primary) hypertension; E78.5 Hyperlipidemia, unspecified
CPT/HCPCS: 36415; 80048; 80061; 82306; 83036; 84450; 84460

== ENCOUNTER 2024-08-24 08:34 | Outpatient (AMB) | payer OTHER, SELFPAY ==
--- NOTE | 2024-08-24 08:44 | A.OFFPC_ITS ---
Vital Signs 08/24/24 08:45 Height 5 ft 10 in Weight 200 lb BMI 28.7 BP 112/70 Blood Pressure Location Lt brachial Position Sitting Pulse 67 Pulse Source Pulse Oximeter Pulse Oximetry (%) 100 Oxygen Delivery Method Room Air Intake Visit Reasons: PE Intake Note: Pt is here today for PE: Last mammogram 03/28/21, papsmear 09/16/23, colonoscopy 07/05/11 Allergies No Known Allergies Allergy (Verified 08/29/24 21:46) Medication List - Last Reconciled 08/29/24 by Kimber Hermosillo MD empagliflozin (Jardiance) 25 mg PO QAM lisinopril 5 mg PO DAILY metformin 1,000 mg PO BID multivitamin 1 tab PO DAILY omega-3 fatty acids (Fish Oil Concentrate) 1,000 mg PO DAILY pioglitazone 30 mg PO DAILY simvastatin 20 mg PO BEDTIME Tobacco use date assessed: 08/24/24 Dental Screening Dental Screen Date: 08/24/24 Did you have a dental visit in the last 12 months?: Yes Did you have a dental problem in the last 6 months where you did not have access to dental care?: No Was dental information given to patient?: Patient has dentist HPI PE HPI Details 63-year-old lady with type 2 diabetes me llitus, hypertension, dyslipidemia and osteopenia, here today for her physical exam. She is overdue for her mammogram, last done on 03/28/21, up-to-date with her cervical cancer screening with papsmear done 09/16/23, and is overdue colon cancer screening with last colonoscopy done on 07/05/11. She had a bone density done in [address] Barber, her OBGYN which showed osteopenia in multiple sites. [facility] Medical History (Updated 08/29/24 @ 22:20 by Kimber Hermosillo MD) Osteopenia of multiple sites Annual visit for general adult medical examination with abnormal findings Type 2 diabetes mellitus with hyperglycemia, without long-term current use of insulin Type 2 diabetes mellitus with other diabetic kidney complication White matter disease, unspecified Narrow angle glaucoma suspect of both eyes Essential hypertension Dyslipidemia Surgical History History of hand surgery History of colonoscopy Family History Father HTN (hypertension) Glaucoma History of CVA (cerebrovascular accident) Bladder cancer Stroke Mother HTN (hypertension) Seizure Brother No problems noted. Sister No problems noted. Sister No problems noted. Daughter No problems noted. Daughter No problems noted. Social History Housing: House Unable to assess alcohol history related to: Refusing to respond Alcohol intake: current Patient Tobacco Use Status: Former Tobacco user Years Smoked: 23 yrs e-Cigarette/Vaping Use: Never Used Current occupational status: employed Cognitive needs: No Hearing needs: No Vision needs: Yes Questionnaire PHQ-9 Over the last 2 weeks, how often have you been bothered by any of the following problems? 1. Little interest or pleasure in doing things: not at all 2. Feeling down, depressed, or hopeless: not at all 4. Feeling tired or having little energy: not at all 5. Poor appetite or overeating: not at all 6. Feeling bad about yourself - or that you are a failure or have let yourself or your family down: not at all 7. Trouble concentrating on things, such as reading the newspaper or watching television: not at all 8. Moving or speaking so slowly that other people could have noticed. Or the opposite - being so fidgety or restless that you have been moving around a lot more than usual: not at all 9. Thoughts that you would be better off or of hurting yourself in some way: not at all Depression Screening Interpretation: Negative Depression Screening Done: Yes 92013 - PHQ-9 Billing: Yes Source: Developed by Drs. Michael Whitten, Jasmine Rai, Derrick Youngblood and colleagues, with an educational jackie from [employer]. Thrive Questionnaire Date Thrive assessed: 08/24/24 I am a: Patient What is your living situation today?: I have a steady place to live Within the past 12 months, did the food you bought not last and you didn't have the money to get more?: I choose not to answer this question Within the past 12 months, did you worry whether your food would run out before you got money to buy more?: I choose not to answer this question Do you have trouble paying for medicines?: No Do you have trouble getting transportation to medical appointments?: No Do you have trouble paying your heating and electricity bill?: No Do you have trouble taking care of your child, family member or friend?: No Do you have trouble with day-to-day activities such as bathing, preparing meals, shopping, managing finances, etc.?: No Are you interested in more education?: I choose not to answer this question Please select the resources that you would like help with: None Currently or been in a relationship where the following occur: I choose not to answer THRIVE Score: 0 AUDIT C Alcohol Use Questionnaire (AUDIT-C) 1. How often do you have a drink containing alcohol?: Monthly or less 2. How many drinks containing alcohol do you have on a typical day when you are drinking?: 1 or 2 3. How often do you have six or more drinks on one occasion?: Never Total Score: 1 JOSE MARTIN-7 AMB Questionnaire JOSE MARTIN-7 Date JOSE MARTIN - 7 assessed: 03/23/24 Feeling nervous, anxious, or on edge: 0 = Not at all Not being able to stop or control worryin = Not at all Worrying too much about different things: 0 = Not at all Trouble relaxin = Not at all Being so restless that it is hard to sit still: 0 = Not at all Becoming easily annoyed or irritable: 0 = Not at all Feeling afraid as if something awful might happen: 0 = Not at all Total JOSE MARTIN-7 score (0-4 normal; 5-9 mild; 10-14 moderate; 15-21 severe): 0 Source: Developed by Drs. Michael Whitten, Jasmine Rai, Derrick Youngblood and colleagues, with an educational jackie from [employer]. JOSE MARTIN-7 Assessment Billing JOSE MARTIN-7 Assessment Tool: JOSE MARTIN-7 Assessment [id number] Review of Systems Const Denies fatigue, Denies fever(s), Denies headache(s) and Denies weakness Eyes Details: Sees Dr. Lee for her routine eye exam and diabetes retinopathy screening Denies change in vision and Denies itchy eyes ENT Denies dizziness, Denies headache(s), Reports nasal congestion, Reports nasal discharge, Reports post nasal drip, Denies sinus pain, Denies sinus pressure and Denies sore throat Card Denies chest pain, Denies lightheadedness, Denies palpitations and Denies dyspnea Resp Denies chest congestion, Denies cough, Denies dyspnea and Denies wheezing GI Denies abdominal pain, Denies change in bowel habits and Denies heartburn Denies hematuria, Denies urinary frequency, Denies dysuria and Denies urinary urgency Musc Reports no additional complaints Skin/Breast Denies breast swelling, Denies breast pain, Denies breast mass, Denies lesions and Denies rash Neuro Denies dizziness, Denies headache(s) and Denies weakness Psych Reports no additional complaints Endo Denies fatigue, Denies polydipsia, Denies polyuria and Denies palpitations Juvenal/Lymph Denies easy bruising Aller/Immun Denies itchy eyes, Denies seasonal rhinorrhea and Denies wheezing Physical exam (Primary Care) Vital Signs: Last Vital Signs Pulse 67 08/24/24 08:45 BP 112/70 08/24/24 08:45 Pulse Ox 100 08/24/24 08:45 Oxygen Delivery Method Room Air 08/24/24 08:45 BMI result Body Mass Index 28.7 Tobacco/Smoking Status: Tobacco use Status Tobacco use date assessed 08/24/24 08/24/24 08:56 Patient Tobacco Use Status Former Tobacco user 08/24/24 08:44 e-Cigarette/Vaping Use Never Used 08/24/24 08:44 Depression Screening Interpretation: Negative Thrive Assessment: Date of Thrive Assessment Date Thrive assessed 08/24/24 08/24/24 08:56 Currently or been in a relationship where the following occur: I choose not to answer Const Other: Alert oriented x3 General: comfortable, no acute distress and alert Orientation/consciousness: patient oriented x3 HENMT Ears: external ears normal General nose exam: Normal external nose present Mouth: oropharynx normal and moist mucous membranes Eyes General: appearance normal, both eyes and all related structures Pupils: Equal, round and reactive pupils present Neck Neck: Yes full ROM, Yes no lymphadenopathy and Yes supple Chest Breast/axilla palpation: normal palpation of the breasts Resp Effort & Inspection: normal respiratory effort and able to speak in complete sentences Auscultation: clear to auscultation bilaterally Cardio Rate: regular rate Rhythm: regular rhythm Heart sounds: S1 normal heart sound present and S2 normal heart sound present GI Palpation (GI): Soft to palpation, nontender and no masses Auscultation: normal bowel sounds General: Yes no CVA tenderness Back/Spine/Pelvis Back: no CVA tenderness and No back tenderness Skin General skin exam: no rashes or lesions noted Neuro General: patient oriented x3, gait normal, tone normal, moves all extremities, Normal light touch and pain sensation and no focal motor deficits Cranial nerves: Yes CN's II-XII intact bilaterally and Yes Equal, round and reactive pupils present Cognition (Neuro): normal cognition Extrem General: Yes full ROM, Yes no joint enlargement, Yes no clubbing, cyanosis or edema and Yes no calf tenderness Psych Appearance: grossly normal and well kempt Mental Status: mental status grossly normal Speech and movement: Normal speech and movement present Affect: normal affect Results Reviewed Results Reviewed: Laboratory Tests 08/23/24 06:10 Estimat Average Glucose 180 Hemoglobin A1c % 7.9 H johanna: Wandy Tsang Age/Sex: 63/F : 1960 Unit#: [id number] Attend Dr: Kimber Hermosillo MD Re08/23/24 Status: DEP REF Location: [facility] Disch: SPEC : [id number] BETI: 08/23/24 STATUS: COMP REQ : [id number] RECD: 08/23/24-[address]: Kimber Hermosillo MD COMP: 08/23/24 ENTERED: 08/23/[address]: ORDERED: Met Prof Fast, AST, ALT, Lipid Panel, Vitamin D 25-OH Test Result Flag Reference Sodium 143 135-145 mmol/L Potassium 3.7 3.3-5.1 mmol/L CL 108 96-108 mmol/L CO2 27 22-29 mmol/L Gap 12 12-20 BUN 16 9-16 mg/dL Creat 0.78 0.5-1.4 mg/dL EGFR > 60 NOTE: For -[place] individuals, multiply the result by 1.210. Chronic Kidney Disease: Estimated GFR < 60 mL/min/1.73m2 Severe Kidney Disease: Estimated GFR < 15 mL/min/1.73m2 FBS 144 H 60-99 mg/dL A fasting glucose of 126 mg/dl or greater on more than one occasion is considered diagnostic of diabetes. CA 10.0 8.4-10.2 mg/dL AST (GOT) 15 5-31 U/L ALT (GPT) 18 0-31 U/L Triglyceride 97 <150 mg/dL Desirable Triglyceride: less than 150 mg/dL Borderline High Triglyceride 150-199 mg/dL High Triglyceride: 200-499 mg/dL Very High Triglyceride: greater than or equal to 5OO mg/dL Cholesterol 156 <200 mg/dL Desirable Cholesterol: less than 200 mg/dL Borderline High Cholesterol: 200-239 mg/dL High Cholesterol: greater than 239 mg/dL LDL Calculated 82 <100 mg/dL Desirable LDL: less than 100 mg/dL Near Optimal/Above Optimal LDL: 110-129 mg/dL Borderline High LDL: 130-159 mg/dL High LDL: 160-189 mg/dL Very High LDL: greater than or equal to 190 mg/dL HDL 55 >40 mg/dL Desirable HDL: greater than 40 mg/dL Note: This HDL assay may give artificially low results in patients with liver disease. Vit D 25-OH Tot 49.2 >30 ng/mL Health Based Reference Values* Assessment and Plan Assessment & Plan (1) Annual visit for general adult medical examination with abnormal findings: Code(s): Z00.01 - Encounter for general adult medical examination with abnormal findings Plan: Recent fasting lab results reviewed with patient. Continue with regular dental visit every [address] Lee for her yearly diabetes retinopathy screening. Take adequate calcium in diet and vitamin-D 3 at 2000 IU per cap once a day, in addition to weight-bearing exercises to help maintain good muscle tone and weight control. Instructed to do self-breast exam, and continue to get yearly mammogram, last mammogram was done at [facility] 09/22/2023 . Patient referred to [facility] to establish care with them for her routine Pap and pelvic exam, as Dr. Barber is retired. Overdue for screening colonoscopy but patient declined to get procedure done and does not want to do Cologuard testing. Reminded to get her yearly flu vaccine and COVID booster. Up-to-date with her pneumonia vaccine and Tdap. Recommended to get vaccinated against herpes zoster (2) Type 2 diabetes mellitus with hyperglycemia, without long-term current use of insulin: Code(s): E11.65 - Type 2 diabetes mellitus with hyperglycemia Plan: Diabetes control improving but still not at goal. Hemoglobin A1c on recent labs was 7.9%, will continue on metformin 1000 mg twice a day, Jardiance 25 mg in the morning, and increase her pioglitazone dose to 30 mg daily. Up-to-date with her diabetes retinopathy screening, sees Dr. Lee. Reminded to get her yearly flu vaccine and COVID booster. (3) Essential hypertension: Code(s): I10 - Essential (primary) hypertension Plan: Blood pressure at goal of less than 130/80. Continue lisinopril 5 mg daily. Reinforced importance of following a low sodium diet, getting regular exercise, and lowering stress levels. (4) Dyslipidemia: Code(s): E78.5 - Hyperlipidemia, unspecified Plan: Fasting lipids are within normal limits, continued on [place] 3 fatty acid supplements and simvastatin 20 mg at bedtime (5) Cervical cancer screening: Code(s): Z12.4 - Encounter for screening for malignant neoplasm of cervix Plan: Previous Ob is retiring, Referred to [facility] for her routine Pap and pelvic exam (6) Osteopenia of multiple sites: Comment: Seen on bone density ordered by Dr. Barber 12/13/2022 with T-score-2.0 AP spine, left femoral neck T -1.7 total hip T- 1.4 Code(s): M85.89 - Other specified disorders of bone density and structure, multiple sites Orders: Orders Lipid Panel 12/11/24 E11.65 - Type 2 diabetes mellitus with hyperglycemia, E78.5 - Hyperlipidemia, unspecified, I10 - Essential (primary) hypertension, M85.89 - Other specified disorders of bone density and structure, multiple sites Microalbumin, Random (w Creat) 12/11/24 E11.65 - Type 2 diabetes mellitus with hyperglycemia, E78.5 - Hyperlipidemia, unspecified, I10 - Essential (primary) hypertension, M85.89 - Other specified disorders of bone density and structure, multiple sites Hemoglobin A1c 12/11/24 E11.65 - Type 2 diabetes mellitus with hyperglycemia, E78.5 - Hyperlipidemia, unspecified, I10 - Essential (primary) hypertension, M85.89 - Other specified disorders of bone density and structure, multiple sites Alanine Aminotransferase 12/11/24 E11.65 - Type 2 diabetes mellitus with hyperglycemia, E78.5 - Hyperlipidemia, unspecified, I10 - Essential (primary) hypertension, M85.89 - Other specified disorders of bone density and structure, multiple sites Aspartate Amino Transferase 12/11/24 E11.65 - Type 2 diabetes mellitus with hyperglycemia, E78.5 - Hyperlipidemia, unspecified, I10 - Essential (primary) hypertension, M85.89 - Other specified disorders of bone density and structure, multiple sites Basic Metabolic Panel Fasting 12/11/24 E11.65 - Type 2 diabetes mellitus with hyperglycemia, E78.5 - Hyperlipidemia, unspecified, I10 - Essential (primary) hypertension, M85.89 - Other specified disorders of bone density and structure, multiple sites Referrals [employer] Referral Z12.4 - Encounter for screening for malignant neoplasm of cervix Medications: New pioglitazone 30 mg PO DAILY 90 tabs 1RF Review Patient declined Colonoscopy: 08/24/24 Coding Level of Care Code Est Pt Prev Care 40-64y(63016) Diagnoses Annual visit for general adult medical examination with abnormal findings Z00.01 Type 2 diabetes mellitus with hyperglycemia, without long-term current use of insulin E11.65 Essential hypertension I10 Dyslipidemia E78.5 Cervical cancer screening Z12.4 Osteopenia of multiple sites M85.89 Additional Codes JOSE MARTIN-7 Assessment Billing - JOSE MARTIN-7 Assessment Tool: JOSE MARTIN-7 Assessment [id number] ([id number])
[2024-08-24 08:45] VITALS: BP 112/70; PULSE 67; O2SAT 100; BMI 28.7
== END 2024-08-24 09:38 | disposition home or self-care (01) ==
PROVIDERS: PCP Internal Medicine; Visit Provider Internal Medicine
DX: Z00.01 Encounter for general adult medical examination with abnormal findings (principal); E11.65 Type 2 diabetes mellitus with hyperglycemia; I10 Essential (primary) hypertension; E78.5 Hyperlipidemia, unspecified; Z12.4 Encounter for screening for malignant neoplasm of cervix; M85.89 Other specified disorders of bone density and structure, multiple sites

== ENCOUNTER → 2024-08-24 08:34 | Outpatient (BNVA) | payer OTHER, SELFPAY | PROVIDERS: PCP Internal Medicine; Visit Provider Internal Medicine | DX: Z00.01 Encounter for general adult medical examination with abnormal findings (principal); E11.65 Type 2 diabetes mellitus with hyperglycemia; I10 Essential (primary) hypertension; E78.5 Hyperlipidemia, unspecified; M85.89 Other specified disorders of bone density and structure, multiple sites; Z79.899 Other long term (current) drug therapy | CPT/HCPCS: 96127 ==

== ENCOUNTER 2024-12-18 06:33 | Outpatient (REF) | payer OTHER, SELFPAY ==
[2024-12-18 12:32] LABS: Alanine Aminotransferase 17 U/L (0-31); Anion Gap 11 (12-20); Aspartate Amino Transferase 19 U/L (5-31); Blood Urea Nitrogen 15 mg/dL (9-16); Calcium 9.4 mg/dL (8.4-10.2); Carbon Dioxide 27 mmol/L (22-29); Chloride 109 mmol/L (96-108); Cholesterol 149 mg/dL (<200); Estimated Glomerular Filt Rate > 60; Glucose Fasting 123 mg/dL (60-99); HDL Cholesterol 55 mg/dL (>40); LDL Cholesterol Calculated 77 mg/dL (<100); Potassium 4.1 mmol/L (3.3-5.1); Sodium 143 mmol/L (135-145); Triglycerides 89 mg/dL (<150)
[2024-12-18 12:39] LABS: Creatinine Urine 54.89 mg/dL; Microalbum/Creatinine Ratio Ur 49.1 ug/mg cr (<30)
[2024-12-18 12:56] LABS: Estimated Average Glucose 183 mg/dL; Hemoglobin A1C 208.1414 umol/L
== END 2024-12-18 06:34 | disposition home or self-care (01) ==
LOC: HO.HMGCLDS 06:33
PROVIDERS: PCP Internal Medicine; Visit Provider Internal Medicine
DX: M85.89 Other specified disorders of bone density and structure, multiple sites (principal); E11.65 Type 2 diabetes mellitus with hyperglycemia; I10 Essential (primary) hypertension; E78.5 Hyperlipidemia, unspecified
CPT/HCPCS: 36415; 80048; 80061; 82043; 82570; 83036; 84450; 84460

== ENCOUNTER 2024-12-21 08:16 | Outpatient (AMB) | payer OTHER, SELFPAY ==
--- NOTE | 2024-12-21 08:23 | A.OFFPC_ITS ---
Vital Signs 12/21/24 08:24 Height 5 ft 10 in Weight 200 lb BMI 28.7 BP 110/58 L Blood Pressure Location Lt brachial Position Sitting Pulse 74 Pulse Source Pulse Oximeter Pulse Oximetry (%) 98 Oxygen Delivery Method Room Air Intake Visit Reasons: 4 months f/up Intake Note: Pt is here today for her 4mo. f/u Allergies No Known Allergies Allergy (Verified 12/21/24 23:32) Medication List - Last Reconciled 12/21/24 by Kimber Hermosillo MD empagliflozin (Jardiance) 25 mg PO QAM lisinopril 5 mg PO DAILY metformin 1,000 mg PO BID multivitamin 1 tab PO DAILY omega-3 fatty acids (Fish Oil Concentrate) 1,000 mg PO DAILY pioglitazone 30 mg PO DAILY simvastatin 20 mg PO BEDTIME Tobacco use date assessed: 12/21/24 Dental Screening Dental Screen Date: 12/21/24 Did you have a dental visit in the last 12 months?: Yes Did you have a dental problem in the last 6 months where you did not have access to dental care?: Yes Was dental information given to patient?: Patient has dentist HPI 4 months f/up HPI Details 64-year-old lady here today for follow-u p on her diabetes mellitus. Currently taking metformin 1000 mg 1 tablet twice a day, pioglitazone 30 mg daily and Jardiance 25 mg daily in a.m.. The patient has been compliant with taking her medications, and has been trying to stay faithful with her diet, admits to not getting any regular exercise however. Latest labs however showed hemoglobin A1c is higher at 8% with an average glucose over the last 3 months at 183 mg/dL. She sees Dr. Lee yearly for diabetes retinopathy screening, currently up-to-date per patient, will request copy of latest consult report. She has been taking lisinopril 5 mg daily for blood pressure control with urine microalbumin coming back negative, blood pressure stable controlled on present treatment. Takes simvastatin 20 mg at bedtime for control of her lipids with latest fasting lipids within normal limits [facility] Medical History Osteopenia of multiple sites Annual visit for general adult medical examination with abnormal findings Type 2 diabetes mellitus with hyperglycemia, without long-term current use of insulin Type 2 diabetes mellitus with other diabetic kidney complication White matter disease, unspecified Narrow angle glaucoma suspect of both eyes Essential hypertension Dyslipidemia Surgical History History of hand surgery History of colonoscopy Family History Father HTN (hypertension) Glaucoma History of CVA (cerebrovascular accident) Bladder cancer Stroke Mother HTN (hypertension) Seizure Brother No problems noted. Sister No problems noted. Sister No problems noted. Daughter No problems noted. Daughter No problems noted. Social History Housing: House Unable to assess alcohol history related to: Refusing to respond Alcohol intake: current Patient Tobacco Use Status: Former Tobacco user Years Smoked: 23 yrs e-Cigarette/Vaping Use: Never Used Current occupational status: employed Cognitive needs: No Hearing needs: No Vision needs: Yes Questionnaire PHQ-9 Over the last 2 weeks, how often have you been bothered by any of the following problems? 1. Little interest or pleasure in doing things: not at all 2. Feeling down, depressed, or hopeless: not at all 3. Trouble falling or staying asleep, or sleeping too much: not at all 4. Feeling tired or having little energy: not at all 5. Poor appetite or overeating: not at all 6. Feeling bad about yourself - or that you are a failure or have let yourself or your family down: not at all 7. Trouble concentrating on things, such as reading the newspaper or watching television: not at all 8. Moving or speaking so slowly that other people could have noticed. Or the opposite - being so fidgety or restless that you have been moving around a lot more than usual: not at all 9. Thoughts that you would be better off or of hurting yourself in some way: not at all Total score: 0 Depression Screening Interpretation: Negative Depression Screening Done: Yes Source: Developed by Drs. Michael Whitten, Jasmine Rai, Derrick Youngblood and colleagues, with an educational jackie from [employer]. Thrive Questionnaire Date Thrive assessed: 08/24/24 I am a: Patient What is your living situation today?: I have a steady place to live Within the past 12 months, did the food you bought not last and you didn't have the money to get more?: Never true Within the past 12 months, did you worry whether your food would run out before you got money to buy more?: Never true Do you have trouble paying for medicines?: No Do you have trouble getting transportation to medical appointments?: No Do you have trouble paying your heating and electricity bill?: No Do you have trouble taking care of your child, family member or friend?: No Do you have trouble with day-to-day activities such as bathing, preparing meals, shopping, managing finances, etc.?: No Are you currently unemployed and looking for a job?: No Are you interested in more education?: I choose not to answer this question Please select the resources that you would like help with: None Currently or been in a relationship where the following occur: I choose not to answer THRIVE Score: 0 AUDIT C Alcohol Use Questionnaire (AUDIT-C) 1. How often do you have a drink containing alcohol?: Monthly or less 2. How many drinks containing alcohol do you have on a typical day when you are drinking?: 1 or 2 3. How often do you have six or more drinks on one occasion?: Never Total Score: 1 JOSE MARTIN-7 AMB Questionnaire JOSE MARTIN-7 Date JOSE MARTIN - 7 assessed: 03/23/24 Feeling nervous, anxious, or on edge: 0 = Not at all Not being able to stop or control worryin = Not at all Worrying too much about different things: 0 = Not at all Trouble relaxin = Not at all Being so restless that it is hard to sit still: 0 = Not at all Becoming easily annoyed or irritable: 0 = Not at all Feeling afraid as if something awful might happen: 0 = Not at all Total JOSE MARTIN-7 score (0-4 normal; 5-9 mild; 10-14 moderate; 15-21 severe): 0 Source: Developed by Drs. Michael Whitten, Jasmine Rai, Derrick Youngblood and colleagues, with an educational jackie from [employer]. Review of Systems Const Denies fatigue, Denies fever(s), Denies headache(s) and Denies weakness Eyes Details: Sees Dr. Lee for her routine eye exam and diabetes retinopathy screening Denies change in vision and Denies itchy eyes ENT Denies dizziness and Denies headache(s) Card Denies chest pain, Denies lightheadedness, Denies palpitations and Denies dyspnea Resp Denies chest congestion, Denies cough, Denies dyspnea and Denies wheezing GI Denies abdominal pain, Denies change in bowel habits and Denies heartburn Denies hematuria, Denies urinary frequency, Denies dysuria and Denies urinary urgency Musc Reports no additional complaints Skin/Breast Denies breast mass, Denies lesions and Denies rash Neuro Denies dizziness, Denies headache(s) and Denies weakness Psych Reports no additional complaints Endo Denies fatigue, Denies polydipsia, Denies polyuria and Denies palpitations Juvenal/Lymph Denies easy bruising Aller/Immun Denies itchy eyes, Denies seasonal rhinorrhea and Denies wheezing Physical exam (Primary Care) Vital Signs: Last Vital Signs Pulse 74 12/21/24 08:24 BP 110/58 L 12/21/24 08:24 Pulse Ox 98 12/21/24 08:24 Oxygen Delivery Method Room Air 12/21/24 08:24 BMI result Body Mass Index 28.7 Tobacco/Smoking Status: Tobacco use Status Tobacco use date assessed 12/21/24 12/21/24 08:35 Patient Tobacco Use Status Former Tobacco user 12/21/24 08:23 e-Cigarette/Vaping Use Never Used 12/21/24 08:23 PHQ-9: PHQ-9 Score PHQ-9: Total score 0 12/21/24 09:12 Depression Screening Interpretation: Negative Thrive Assessment: Date of Thrive Assessment Date Thrive assessed 08/24/24 12/21/24 08:23 Currently or been in a relationship where the following occur: I choose not to answer Const Other: Alert oriented x3 General: comfortable and no acute distress HENMT Ears: external ears normal General nose exam: Normal external nose present Mouth: oropharynx normal and moist mucous membranes Eyes General: appearance normal, both eyes and all related structures Neck Neck: Yes full ROM, Yes no lymphadenopathy and Yes supple Resp Effort & Inspection: normal respiratory effort and able to speak in complete sentences Auscultation: clear to auscultation bilaterally Cardio Rate: regular rate Rhythm: regular rhythm Heart sounds: S1 normal heart sound present and S2 normal heart sound present GI Palpation (GI): Soft to palpation, nontender and no masses Auscultation: normal bowel sounds General: Yes no CVA tenderness Back/Spine/Pelvis Back: no CVA tenderness and No back tenderness Skin General skin exam: no rashes or lesions noted Neuro General: gait normal, tone normal, moves all extremities, Normal light touch and pain sensation and no focal motor deficits Cranial nerves: Yes CN's II-XII intact bilaterally Cognition (Neuro): normal cognition Extrem General: Yes full ROM, Yes no joint enlargement, Yes no clubbing, cyanosis or edema and Yes no calf tenderness Results Reviewed Results Reviewed: Laboratory Tests 12/18/24 06:46 Estimat Average Glucose 183 Hemoglobin A1c % 8.0 H Urine Creatinine 54.89 Urine Microalbumin 27.0 Microalb/Creat Ratio 49.1 H Name: Wandy Tsang Age/Sex: 64/F : 1960 Unit#: [id number] Attend Dr: Kimber Hermosillo MD Re12/18/24 Status: DEP REF Location: [facility] Disch: SPEC : [id number] BETI: 12/18/24 STATUS: COMP REQ : [id number] RECD: 12/18/[address]: Kimber Hermosillo MD COMP: 12/18/24 ENTERED: 12/18/[address] [facility] [address]: ORDERED: Met Prof Fast, AST, ALT, Lipid Panel Test Result Flag Reference Sodium 143 135-145 mmol/L Potassium 4.1 3.3-5.1 mmol/L CL 109 H 96-108 mmol/L CO2 27 22-29 mmol/L Gap 11 L 12-20 BUN 15 9-16 mg/dL Creat 0.69 0.5-1.4 mg/dL eGFR > 60 Chronic Kidney Disease: Estimated GFR < 60 mL/min/1.73m2 Severe Kidney Disease: Estimated GFR < 15 mL/min/1.73m2 FBS 123 H 60-99 mg/dL A fasting glucose from 100-125 mg/dl is considered impaired (pre-diabetes). CA 9.4 8.4-10.2 mg/dL AST (GOT) 19 5-31 U/L ALT (GPT) 17 0-31 U/L Triglyceride 89 <150 mg/dL Desirable Triglyceride: less than 150 mg/dL Borderline High Triglyceride 150-199 mg/dL High Triglyceride: 200-499 mg/dL Very High Triglyceride: greater than or equal to 5OO mg/dL Cholesterol 149 <200 mg/dL Desirable Cholesterol: less than 200 mg/dL Borderline High Cholesterol: 200-239 mg/dL High Cholesterol: greater than 239 mg/dL LDL Calculated 77 <100 mg/dL Desirable LDL: less than 100 mg/dL Near Optimal/Above Optimal LDL: 110-129 mg/dL Borderline High LDL: 130-159 mg/dL High LDL: 160-189 mg/dL Very High LDL: greater than or equal to 190 mg/dL HDL 55 >40 mg/dL Desirable HDL: greater than 40 mg/dL Note: This HDL assay may give artificially low results in patients with liver disease. Coding Level of Care Code Est Pt Level 4 (26525) Complex EM visit Add On G2211 Diagnoses Type 2 diabetes mellitus with other diabetic kidney complication E11.29 Essential hypertension I10 Dyslipidemia E78.5 Type 2 diabetes mellitus with hyperglycemia, without long-term current use of insulin E11.65 Assessment & Plan Assessment & Plan (1) Type 2 diabetes mellitus with other diabetic kidney complication: Code(s): E11.29 - Type 2 diabetes mellitus with other diabetic kidney complication Category: Medical Plan: Hemoglobin A1c not at goal, of less than 6.5%. Will continue on metformin, Jardiance and pioglitazone same dose, will add Mounjaro 2.5 mg injected subcutaneously once a week. Patient instructed on how to properly administer medication, discussed possible side effects of medication and will see her back for follow-up in 4 weeks after starting medication. Currently up-to-date with her diabetes retinopathy screening. (2) Essential hypertension: Code(s): I10 - Essential (primary) hypertension Category: Medical Plan: Blood pressure at goal of less than 130/80. Continue lisinopril 5 mg once a day. Reinforced importance of following a low sodium diet, getting regular exercise, and lowering stress levels. (3) Dyslipidemia: Code(s): E78.5 - Hyperlipidemia, unspecified Category: Medical Plan: Latest fasting lipids are within normal limits, will continue on [place] 3 fatty acid supplements and simvastatin 20 mg at bedtime. Recheck fasting lipids, hemoglobin A1c in 3 months (4) Type 2 diabetes mellitus with hyperglycemia, without long-term current use of insulin: Code(s): E11.65 - Type 2 diabetes mellitus with hyperglycemia Category: Medical Plan: Continue on current medication, with Mounjaro added Orders: Orders Basic Metabolic Panel Fasting 03/01/25 E11.29 - Type 2 diabetes mellitus with other diabetic kidney complication, E11.65 - Type 2 diabetes mellitus with hy perglycemia, E78.5 - Hyperlipidemia, unspecified, I10 - Essential (primary) hypertension, M85.89 - Other specified disorders of bone density and structure, multiple sites Alanine Aminotransferase 03/01/25 E11.29 - Type 2 diabetes mellitus with other diabetic kidney complication, E11.65 - Type 2 diabetes mellitus with hyperglycemia, E78.5 - Hyperlipidemia, unspecified, I10 - Essential (primary) hypertension, M85.89 - Other specified disorders of bone density and structure, multiple sites Hemoglobin A1c 03/01/25 E11.29 - Type 2 diabetes mellitus with other diabetic kidney complication, E11.65 - Type 2 diabetes mellitus with hyperglycemia, E78.5 - Hyperlipidemia, unspecified, I10 - Essential (primary) hypertension, M85.89 - Other specified disorders of bone density and structure, multiple sites Lipid Panel 03/01/25 E11.29 - Type 2 diabetes mellitus with other diabetic kidney complication, E11.65 - Type 2 diabetes mellitus with hyperglycemia, E78.5 - Hyperlipidemia, unspecified, I10 - Essential (primary) hypertension, M85.89 - Other specified disorders of bone density and structure, multiple sites Aspartate Amino Transferase 03/01/25 E11.29 - Type 2 diabetes mellitus with other diabetic kidney complication, E11.65 - Type 2 diabetes mellitus with hyperglycemia, E78.5 - Hyperlipidemia, unspecified, I10 - Essential (primary) hypertension, M85.89 - Other specified disorders of bone density and structure, multiple sites Medications: New Mounjaro (tirzepatide) for 4 weeks 2.5 mg (0.5 mL) subcut QWEEK 2 mL 0RF NS E11.29 - Type 2 diabetes mellitus with other diabetic kidney complication
[2024-12-21 08:24] VITALS: BP 110/58; PULSE 74; O2SAT 98; BMI 28.7
== END 2024-12-21 09:21 | disposition home or self-care (01) ==
PROVIDERS: PCP Internal Medicine; Visit Provider Internal Medicine
DX: E11.29 Type 2 diabetes mellitus with other diabetic kidney complication (principal); I10 Essential (primary) hypertension; E78.5 Hyperlipidemia, unspecified; E11.65 Type 2 diabetes mellitus with hyperglycemia

== ENCOUNTER → 2024-12-21 08:16 | Outpatient (BNVA) | payer OTHER, SELFPAY | PROVIDERS: PCP Internal Medicine; Visit Provider Internal Medicine ==

== ENCOUNTER 2025-01-11 08:55 | Outpatient (AMB) | payer OTHER, SELFPAY ==
--- NOTE | 2025-01-11 08:58 | A.OFFVIS_ITS ---
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 No complaints. Last Pap/HPV was negative in 09/22 at [facility] Last Mammogram was BI-RADS 2 in 09/22 at [facility] Last Colonoscopy was in 2010 [facility] Medical History Osteopenia of multiple sites Annual visit for general adult medical examination with abnormal findings Type 2 diabetes mellitus with hyperglycemia, without long-term current use of insulin Type 2 diabetes mellitus with other diabetic kidney complication White matter disease, unspecified Narrow angle glaucoma suspect of both eyes Essential hypertension Dyslipidemia Surgical History History of hand surgery History of colonoscopy Family History Father HTN (hypertension) Glaucoma History of CVA (cerebrovascular accident) Bladder cancer Stroke Mother HTN (hypertension) Seizure Brother No problems noted. Sister No problems noted. Sister No problems noted. Daughter No problems noted. Daughter No problems noted. Social History Household Members: Spouse Housing: House Unable to assess alcohol history related to: Refusing to respond Alcohol intake: current Patient Tobacco Use Status: Former Tobacco user Years Smoked: 23 yrs e-Cigarette/Vaping Use: Never Used Current occupational status: employed Current occupation: assisting marketing development specialist coordinator Sexual orientation: Straight/Heterosexual Gender identity: Female Cognitive needs: No Hearing needs: No Vision needs: Yes Female Reproductive History Menstrual Total pregnancies: 2 Full term: 2 Number of Living Children: 2 Date of last pap smear: 09/17/23 Review of Systems Const All systems reviewed & are unremarkable except as noted in HPI and below Card Reports as per HPI Resp Reports as per HPI GI Reports as per HPI and Reports no additional complaints Reports as per HPI Physical Exam Const General: cooperative, healthy appearing and comfortable Chest Chest palpation & inspection: normal inspection of the chest and normal palpation of entire chest wall Breast/axilla inspection: normal inspection of the breasts and normal inspection of the axillae Breast/axilla palpation: normal palpation of the breasts, normal palpation of the axillae and no axillary lymphadenopathy Resp Effort & Inspection: normal respiratory effort Auscultation: clear to auscultation bilaterally Percussion: percussion normal Cardio Palpation: normal PMI Rate: regular rate Rhythm: regular rhythm Heart sounds: no murmurs and no rubs Peripheral pulses: Peripheral pulses 2+ throughout GI Inspection: Yes normal to inspection Palpation (GI): Soft to palpation, nontender, no guarding, not rigid and No hepatosplenomegaly present Percussion: Yes normal to percussion Auscultation: normal bowel sounds Rectal Exam - Female: deferred General: Yes bladder normal to palpation External Female Exam: No lesion Speculum Exam - Vagina: normal appearance of the vagina, normal palpation, normal vaginal discharge and not erythematous Speculum Exam - Cervix: normal appearance of the cervix and normal palpation Bimanual exam- vagina & uterus: normal bimanual exam, normal palpation, uterine size normal, bladder normal to palpation, consistency normal and normal palpation Bimanual Exam- Adnexa, other: normal adnexae, no masses and no tenderness Assessment & Plan Assessment & Plan (1) Well woman exam: Code(s): Z01.419 - Encounter for gynecological examination (general) (routine) without abnormal findings Category: Medical Plan: Co testing not indicated this year. Counseled the patient about the recommended dietary allowance of 1200 mg of Calcium & 600 IU of vitamin D. Mammogram ordered. The patient was offered referral to GI for screening colonoscopy , the patient would like to think about it and get back to me. The patient was instructed to perform monthly self-breast exams and schedule annual exam in a year. All questions answered and the patient verbalized understanding. Orders: Orders MM tomosynthesis screening BI Today Z12.31 - Encounter for screening mammogram for malignant neoplasm of breast Coding Level of Care Code New Pt Prev Care 40-64y(38389) Diagnoses Well woman exam Z01.419
[2025-01-11 09:00] VITALS: BP 110/60; BMI 27.8
== END 2025-01-11 09:20 | disposition home or self-care (01) ==
PROVIDERS: PCP Internal Medicine; Visit Provider Obstetrics & Gynecology
DX: Z01.419 Encounter for gynecological examination (general) (routine) without abnormal findings (principal)
CPT/HCPCS: 99386; 99459

== ENCOUNTER → 2025-01-11 08:55 | Outpatient (BNVA) | payer OTHER, SELFPAY | PROVIDERS: PCP Internal Medicine; Visit Provider Obstetrics & Gynecology ==

== ENCOUNTER 2025-04-18 06:01 | Outpatient (REF) | payer OTHER, SELFPAY ==
[2025-04-18 10:40] LABS: Estimated Average Glucose 154 mg/dL; Hemoglobin A1C 176.4853 umol/L; Total Hemoglobin (HGBA1C) 3322.6779 umol/L
[2025-04-18 10:44] LABS: Alanine Aminotransferase 19 U/L (0-31); Anion Gap 14 (12-20); Aspartate Amino Transferase 22 U/L (5-31); Blood Urea Nitrogen 14 mg/dL (9-16); Calcium 10.1 mg/dL (8.4-10.2); Carbon Dioxide 26 mmol/L (22-29); Chloride 106 mmol/L (96-108); Cholesterol 139 mg/dL (<200); Estimated Glomerular Filt Rate > 60; Glucose Fasting 119 mg/dL (60-99); HDL Cholesterol 55 mg/dL (>40); LDL Cholesterol Calculated 66 mg/dL (<100); Potassium 3.6 mmol/L (3.3-5.1); Sodium 142 mmol/L (135-145); Triglycerides 91 mg/dL (<150)
== END 2025-04-18 06:02 | disposition home or self-care (01) ==
LOC: HO.HMGCLDS 06:01
PROVIDERS: PCP Internal Medicine; Visit Provider Internal Medicine
DX: M85.89 Other specified disorders of bone density and structure, multiple sites (principal); E11.65 Type 2 diabetes mellitus with hyperglycemia; E11.29 Type 2 diabetes mellitus with other diabetic kidney complication; I10 Essential (primary) hypertension; E78.5 Hyperlipidemia, unspecified
CPT/HCPCS: 36415; 80048; 80061; 83036; 84450; 84460

== ENCOUNTER 2025-04-19 09:17 | Outpatient (AMB) | payer OTHER, SELFPAY ==
--- NOTE | 2025-04-19 09:28 | A.OFFPC_ITS ---
Vital Signs 04/19/25 09:30 Height 5 ft 11 in Weight 193 lb BMI 26.9 BP 110/60 Blood Pressure Location Lt brachial Position Sitting Respiration 15 Pulse 68 Pulse Source Pulse Oximeter Temp 98.1 F Temp Source Oral Pulse Oximetry (%) 95 Oxygen Delivery Method Room Air Intake Visit Reasons: 4 months f/up Allergies No Known Allergies Allergy (Verified 04/19/25 09:36) Medication List - Last Reconciled 04/19/25 by Kimber Hermosillo MD empagliflozin (Jardiance) 25 mg PO QAM lisinopril 5 mg PO DAILY metformin 1,000 mg PO BID Mounjaro (tirzepatide) 2.5 mg (0.5 mL) subcut QWEEK NS multivitamin 1 tab PO DAILY omega-3 fatty acids (Fish Oil Concentrate) 1,000 mg PO DAILY pioglitazone 30 mg PO DAILY simvastatin 20 mg PO BEDTIME Tobacco use date assessed: 04/19/25 Dental Screening Dental Screen Date: 04/19/25 Did you have a dental visit in the last 12 months?: Yes Did you have a dental problem in the last 6 months where you did not have access to dental care?: No Was dental information given to patient?: Patient has dentist HPI 4 months f/up HPI Details 64-year-old lady with diabetes mellitus, dyslipidemia and hypertension, compliant with taking her medications. Currently on Mounjaro started on last visit, tolerating medication well, no abnormal side effects noted and patient states that she does not really feel that it is affecting her appetite. Has lost only 1 lb since starting the medication. 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 Sister No problems noted. Sister No problems noted. Daughter No problems noted. Daughter No problems noted. Social History Household Members: Spouse Housing: House Unable to assess alcohol history related to: Refusing to respond Alcohol intake: current Patient Tobacco Use Status: Former Tobacco user Years Smoked: 23 yrs e-Cigarette/Vaping Use: Never Used Current occupational status: employed Current occupation: assisting field artillery senior sergeant coordinator Sexual orientation: Straight/Heterosexual Gender identity: Female Cognitive needs: No Hearing needs: No Vision needs: Yes Questionnaire Thrive Questionnaire Date Thrive assessed: 12/15/24 I am a: Patient What is your living situation today?: I have a steady place to live Within the past 12 months, did the food you bought not last and you didn't have the money to get more?: Never true Within the past 12 months, did you worry whether your food would run out before you got money to buy more?: Never true Do you have trouble paying for medicines?: No Do you have trouble getting transportation to medical appointments?: No Do you have trouble paying your heating and electricity bill?: No Do you have trouble taking care of your child, family member or friend?: No Do you have trouble with day-to-day activities such as bathing, preparing meals, shopping, managing finances, etc.?: No Are you currently unemployed and looking for a job?: No Are you interested in more education?: I choose not to answer this question Please select the resources that you would like help with: None Currently or been in a relationship where the following occur: I choose not to answer THRIVE Score: 0 AUDIT C Alcohol Use Questionnaire (AUDIT-C) 1. How often do you have a drink containing alcohol?: Monthly or less 2. How many drinks containing alcohol do you have on a typical day when you are drinking?: 1 or 2 3. How often do you have six or more drinks on one occasion?: Never Total Score: 1 JOSE MARTIN-7 AMB Questionnaire JOSE MARTIN-7 Date JOSE MARTIN - 7 assessed: 03/23/24 Source: Developed by Drs. Michael Whitten, Jasmine Rai, Derrick Youngblood and colleagues, with an educational jackie from [employer]. Review of Systems Const Denies fatigue, Denies fever(s), Denies headache(s) and Denies weakness Eyes Details: Sees Dr. Lee for her routine eye exam and diabetes retinopathy screening Denies change in vision ENT Denies dizziness and Denies headache(s) Card Denies chest pain, Denies lightheadedness, Denies palpitations and Denies dyspnea Resp Denies chest congestion, Denies cough, Denies dyspnea and Denies wheezing GI Denies abdominal pain, Denies change in bowel habits and Denies heartburn Denies hematuria, Denies urinary frequency, Denies dysuria and Denies urinary urgency Musc Reports no additional complaints, Denies numbness and Denies tingling Skin/Breast Denies breast mass, Denies lesions and Denies rash Neuro Denies dizziness, Denies headache(s), Denies numbness, Denies Sensory deficit (Neuro), Denies tingling, Denies paresthesias and Denies weakness Psych Reports no additional complaints Endo Denies fatigue, Denies polydipsia, Denies polyuria and Denies palpitations Juvenal/Lymph Denies easy bruising Aller/Immun Denies seasonal rhinorrhea and Denies wheezing Physical exam (Primary Care) Vital Signs: Last Vital Signs Temp 98.1 F 04/19/25 09:30 Pulse 68 04/19/25 09:30 Resp 15 04/19/25 09:30 BP 110/60 04/19/25 09:30 Pulse Ox 95 04/19/25 09:30 Oxygen Delivery Method Room Air 04/19/25 09:30 BMI result Body Mass Index 26.9 Tobacco/Smoking Status: Tobacco use Status Tobacco use date assessed 04/19/25 04/19/25 09:28 Patient Tobacco Use Status Former Tobacco user 04/19/25 09:28 e-Cigarette/Vaping Use Never Used 04/19/25 09:28 Thrive Assessment: Date of Thrive Assessment Date Thrive assessed 12/15/24 04/19/25 09:28 Currently or been in a relationship where the following occur: I choose not to answer Const Other: Alert oriented x3 General: comfortable and no acute distress HENMT Ears: external ears normal General nose exam: Normal external nose present Mouth: oropharynx normal and moist mucous membranes Eyes General: appearance normal, both eyes and all related structures Neck Neck: Yes full ROM, Yes no lymphadenopathy and Yes supple Resp Effort & Inspection: normal respiratory effort and able to speak in complete sentences Auscultation: clear to auscultation bilaterally Cardio Rate: regular rate Rhythm: regular rhythm Heart sounds: S1 normal heart sound present and S2 normal heart sound present GI Palpation (GI): Soft to palpation, nontender and no masses Auscultation: normal bowel sounds General: Yes no CVA tenderness Back/Spine/Pelvis Back: no CVA tenderness and No back tenderness Skin General skin exam: no rashes or lesions noted Neuro General: gait normal, tone normal, moves all extremities, Normal light touch and pain sensation and no focal motor deficits Cranial nerves: Yes CN's II-XII intact bilaterally Cognition (Neuro): normal cognition Sensory Exam: No Sensory deficit (Neuro) Extrem General: Yes full ROM, Yes no joint enlargement, Yes no clubbing, cyanosis or edema and Yes no calf tenderness Results Reviewed Results Reviewed: Laboratory Tests 12/18/24 04/18/25 06:46 06:10 Estimat Average Glucose 154 Hemoglobin A1c % 7.0 H Urine Creatinine 54.89 Urine Microalbumin 27.0 Microalb/Creat Ratio 49.1 H Name: Wandy Tsang Eliza Age/Sex: 64/F : 1960 Unit#: [id number] Attend Dr: Kimber Hermosillo MD Re04/18/25 Status: DEP REF Location: [facility] [place] Disch: SPEC : [id number] BETI: 04/18/25 STATUS: COMP REQ : [id number] RECD: 04/18/[address]: Kimber Hermosillo MD COMP: 04/18/25 ENTERED: 04/18/[address]: ORDERED: Met Prof Fast, AST, ALT, Lipid Panel Test Result Flag Reference Sodium 142 135-145 mmol/L Potassium 3.6 3.3-5.1 mmol/L CL 106 96-108 mmol/L CO2 26 22-29 mmol/L Gap 14 12-20 BUN 14 9-16 mg/dL Creat 0.75 0.5-1.4 mg/dL eGFR > 60 Chronic Kidney Disease: Estimated GFR < 60 mL/min/1.73m2 Severe Kidney Disease: Estimated GFR < 15 mL/min/1.73m2 FBS 119 H 60-99 mg/dL A fasting glucose from 100-125 mg/dl is considered impaired (pre-diabetes). CA 10.1 # 8.4-10.2 mg/dL AST (GOT) 22 5-31 U/L ALT (GPT) 19 0-31 U/L Triglyceride 91 <150 mg/dL Desirable Triglyceride: less than 150 mg/dL Borderline High Triglyceride 150-199 mg/dL High Triglyceride: 200-499 mg/dL Very High Triglyceride: greater than or equal to 5OO mg/dL Cholesterol 139 <200 mg/dL Desirable Cholesterol: less than 200 mg/dL Borderline High Cholesterol: 200-239 mg/dL High Cholesterol: greater than 239 mg/dL LDL Calculated 66 <100 mg/dL Desirable LDL: less than 100 mg/dL Near Optimal/Above Optimal LDL: 110-129 mg/dL Borderline High LDL: 130-159 mg/dL High LDL: 160-189 mg/dL Very High LDL: greater than or equal to 190 mg/dL HDL 55 >40 mg/dL Desirable HDL: greater than 40 mg/dL Note: This HDL assay may give artificially low results in patients with liver disease. Coding Level of Care Code Est Pt Level 4 (91457) Complex EM visit Add On G2211 Diagnoses Dyslipidemia E78.5 Essential hypertension I10 Type 2 diabetes mellitus with other diabetic kidney complication E11.29 Type 2 diabetes mellitus with hyperglycemia, without long-term current use of insulin E11.65 Assessment & Plan Assessment & Plan (1) Dyslipidemia: Code(s): E78.5 - Hyperlipidemia, unspecified Category: Medical Plan: Reviewed recent fasting lipid profile with patient with levels within normal limit . Continue simvastatin 20 mg at bedtime and [place] 3 fatty acid supplements a 1000 mg daily , in addition to adherence to low-cholesterol diet and regular exercise, at least 30 minutes 3 to 4 times a week. Advised patient to make healthy food choices, eat more fruits, vegetables, whole grains, wild caught fish and low-fat dairy. Limit amount of meat and fried or fatty food products, as well as processed foods and fast foods. Follow-up scheduled with repeat fasting lipid panel in 4 months. (2) Essential hypertension: Code(s): I10 - Essential (primary) hypertension Category: Medical Plan: Blood pressure at goal of less than 130/80. Continue with lisinopril 5 mg daily. Reinforced importance of following a low sodium diet, getting regular exercise, and lowering stress levels. (3) Type 2 diabetes mellitus with other diabetic kidney complication: Code(s): E11.29 - Type 2 diabetes mellitus with other diabetic kidney complication Category: Medical Plan: Recent lab results reviewed with patient, with sugar and hemoglobin A1c impro ving with hemoglobin A1c now at 7%. Goal is less than 6.5%. continue with metformin, pioglitazone, Jardiance and Mounjaro dose was increased to 5 mg injected subcutaneously once a week. Continue to check fasting blood sugar at home, maintain log and bring to next appointment for review. Reinforced diabetic diet and regular exercise with patient. Counseled regarding importance of yearly diabetes retinopathy screening. Patient advised to inspect feet daily, for any signs of injury, callus or infection. Compliance with diet and regular exercise again stressed. Blood pressure goal is less than 130/80, goal LDL is less than 100 and goal hemoglobin A1c is less than 7% follow-up appointment made in-, after fasting labs done. Up-to-date with her diabetes retinopathy screening, seen by Dr. Lee December 2024 with no retinopathy seen (4) Type 2 diabetes mellitus with hyperglycemia, without long-term current use of insulin: Code(s): E11.65 - Type 2 diabetes mellitus with hyperglycemia Category: Medical Plan: Recent lab results reviewed with patient, with sugar and hemoglobin A1c improving with hemoglobin A1c now at 7%. Goal is less than 6.5%. continue with metformin, pioglitazone, Jardiance and Mounjaro dose was increased to 5 mg injected subcutaneously once a week. Continue to check fasting blood sugar at home, maintain log and bring to next appointment for review. Reinforced diabetic diet and regular exercise with patient. Counseled regarding importance of yearly diabetes retinopathy screening. Patient advised to inspect feet daily, for any signs of injury, callus or infection. Compliance with diet and regular exercise again stressed. Blood pressure goal is less than 130/80, goal LDL is less than 100 and goal hemoglobin A1c is less than 7% follow-up appointment made in, after fasting labs done. Up-to-date with her diabetes retinopathy screening, seen by Dr. Lee December 2024 with no retinopathy seen Orders: Orders Hemoglobin A1c 08/01/25 E11.29 - Type 2 diabetes mellitus with other diabetic kidney complication, E11.65 - Type 2 diabetes mellitus with hyperglycemia, E78.5 - Hyperlipidemia, unspecified, I10 - Essential (primary) hypertension, M85.89 - Other specified disorders of bone density and structure, multiple sites Alanine Aminotransferase 08/01/25 E11.29 - Type 2 diabetes mellitus with other diabetic kidney complication, E11.65 - Type 2 diabetes mellitus with hyperglycemia, E78.5 - Hyperlipidemia, unspecified, I10 - Essential (primary) hypertension, M85.89 - Other specified disorders of bone density and structure, multiple sites Aspartate Amino Transferase 08/01/25 E11.29 - Type 2 diabetes mellitus with other diabetic kidney complication, E11.65 - Type 2 diabetes mellitus with hyperglycemia, E78.5 - Hyperlipidemia, unspecified, I10 - Essential (primary) hypertension, M85.89 - Other specified disorders of bone density and structure, multiple sites Lipid Panel 08/01/25 E11.29 - Type 2 diabetes mellitus with other diabetic kidney complication, E11.65 - Type 2 diabetes mellitus with hyperglycemia, E78.5 - Hyperlipidemia, unspecified, I10 - Essential (primary) hypertension, M85.89 - Other specified disorders of bone density and structure, multiple sites Basic Metabolic Panel Fasting 08/01/25 E11.29 - Type 2 diabetes mellitus with other diabetic kidney complication, E11.65 - Type 2 diabetes mellitus with hyperglycemia, E78.5 - Hyperlipidemia, unspecified, I10 - Essential (primary) hypertension, M85.89 - Other specified disorders of bone density and structure, multiple sites Medications: Changed From Mounjaro (tirzepatide) for 4 weeks 2.5 mg (0.5 mL) subcut QWEEK 2 mL 2RF NS E11.29 - Type 2 diabetes mellitus with other diabetic kidney complication To Mounjaro (tirzepatide) for 4 weeks 5 mg (0.5 mL) subcut QWEEK 30 days 2 mL 4RF NS E11.29 - Type 2 diabetes mellitus with other diabetic kidney complication
[2025-04-19 09:30] VITALS: BP 110/60; PULSE 68; RESP 15; TEMP 36.7; O2SAT 95; BMI 26.9
== END 2025-04-19 09:56 | disposition home or self-care (01) ==
LOC: HO.HMCC 09:18
PROVIDERS: PCP Internal Medicine; Visit Provider Internal Medicine
DX: E78.5 Hyperlipidemia, unspecified (principal); I10 Essential (primary) hypertension; E11.29 Type 2 diabetes mellitus with other diabetic kidney complication; E11.65 Type 2 diabetes mellitus with hyperglycemia

== ENCOUNTER → 2025-04-19 09:17 | Outpatient (BNVA) | payer OTHER, SELFPAY | PROVIDERS: PCP Internal Medicine; Visit Provider Internal Medicine | DX: Z13.89 Encounter for screening for other disorder (principal) ==

== ENCOUNTER 2025-08-09 08:44 | Outpatient (REF) | payer OTHER, SELFPAY ==
[2025-08-09 10:16] LABS: Hemoglobin A1C 153.7912 umol/L; Total Hemoglobin (HGBA1C) 3009.3732 umol/L
[2025-08-09 10:30] LABS: Alanine Aminotransferase 14 U/L (0-31); Anion Gap 10 (12-20); Aspartate Amino Transferase 19 U/L (5-31); Blood Urea Nitrogen 12 mg/dL (9-16); Calcium 9.2 mg/dL (8.4-10.2); Carbon Dioxide 27 mmol/L (22-29); Chloride 109 mmol/L (96-108); Cholesterol 136 mg/dL (<200); Estimated Glomerular Filt Rate > 60; HDL Cholesterol 56 mg/dL (>40); Potassium 4.1 mmol/L (3.3-5.1); Sodium 142 mmol/L (135-145); Triglycerides 44 mg/dL (<150)
== END 2025-08-09 08:45 | disposition home or self-care (01) ==
LOC: HO.HMGCLDS 08:44
PROVIDERS: PCP Internal Medicine; Visit Provider Internal Medicine
DX: E11.65 Type 2 diabetes mellitus with hyperglycemia (principal); E11.29 Type 2 diabetes mellitus with other diabetic kidney complication; M85.89 Other specified disorders of bone density and structure, multiple sites; E78.5 Hyperlipidemia, unspecified; I10 Essential (primary) hypertension
CPT/HCPCS: 36415; 80048; 80061; 83036; 84450; 84460

== ENCOUNTER 2025-08-16 09:57 | Outpatient (AMB) | payer OTHER, SELFPAY ==
[2025-08-16 10:43] VITALS: BP 94/52; PULSE 75; RESP 16; TEMP 37; O2SAT 98; BMI 25.5
--- NOTE | 2025-08-16 10:43 | A.OFFPC_ITS ---
Vital Signs 08/16/25 10:43 Height 5 ft 10 in Weight 178 lb BMI 25.5 BP 94/52 L Blood Pressure Location Rt brachial Position Sitting Respiration 16 Pulse 75 Pulse Source Pulse Oximeter Temp 98.6 F Temp Source Oral Pulse Oximetry (%) 98 Oxygen Delivery Method Room Air Intake Visit Reasons: 4m follow up Intake Note: Pt is here today 4mo. f/u Allergies No Known Allergies Allergy (Verified 08/16/25 10:58) Medication List - Last Reconciled 08/16/25 by Kimber Hermosillo MD empagliflozin (Jardiance) 25 mg PO QAM lisinopril 5 mg PO DAILY metformin 1,000 mg PO BID Mounjaro (tirzepatide) 5 mg (0.5 mL) subcut QWEEK 30 days NS multivitamin 1 tab PO DAILY omega-3 fatty acids (Fish Oil Concentrate) 1,000 mg PO DAILY pioglitazone 30 mg PO DAILY simvastatin 20 mg PO BEDTIME Tobacco use date assessed: 08/16/25 Dental Screening Dental Screen Date: 08/16/25 Did you have a dental visit in the last 12 months?: Yes Did you have a dental problem in the last 6 months where you did not have access to dental care?: No Was dental information given to patient?: Patient has dentist HPI 4m follow up HPI Details 64-year-old lady with diabetes mellitus, dyslipidemia and hypertension, compliant with taking her medications. Currently on Mounjaro 5 mg injected once a week, pioglitazone 30 mg daily, metformin a 1000 mg twice a day and Jardiance 25 mg in the morning. Noted much improvement in her diabetes control now with hemoglobin A1c at 6.8%. Blood pressure also has dropped now to within normal limits.. Patient however was unable to get her last prescription for Mounjaro filled, as pharmacy states that they are waiting for another prior authorization to be completed. Has been off Mounjaro now for the since end of July 2025 [facility] Medical History (Updated 08/16/25 @ 11:15 by Kimber Hermosillo MD) Osteopenia of multiple sites Annual visit for general adult medical examination with abnormal findings Type 2 diabetes mellitus with hyperglycemia, without long-term current use of insulin Type 2 diabetes mellitus with other diabetic kidney complication White matter disease, unspecified Narrow angle glaucoma suspect of both eyes Essential hypertension Dyslipidemia Surgical History History of hand surgery History of colonoscopy Family History Father HTN (hypertension) Glaucoma History of CVA (cerebrovascular accident) Bladder cancer Stroke Mother HTN (hypertension) Seizure Brother No problems noted. Sister No problems noted. Sister No problems noted. Daughter No problems noted. Daughter No problems noted. Social History Household Members: Spouse Housing: House Unable to assess alcohol history related to: Refusing to respond Alcohol intake: current Patient Tobacco Use Status: Former Tobacco user Years Smoked: 23 yrs e-Cigarette/Vaping Use: Never Used Current occupational status: employed Current occupation: assisting director of creative services coordinator Sexual orientation: Straight/Heterosexual Gender identity: Female Cognitive needs: No Hearing needs: No Vision needs: Yes Questionnaire Thrive Questionnaire Date Thrive assessed: 12/15/24 I am a: Patient What is your living situation today?: I have a steady place to live Within the past 12 months, did the food you bought not last and you didn't have the money to get more?: Never true Within the past 12 months, did you worry whether your food would run out before you got money to buy more?: Never true Do you have trouble paying for medicines?: No Do you have trouble getting transportation to medical appointments?: No Do you have trouble paying your heating and electricity bill?: No Do you have trouble taking care of your child, family member or friend?: No Do you have trouble with day-to-day activities such as bathing, preparing meals, shopping, managing finances, etc.?: No Are you currently unemployed and looking for a job?: No Are you interested in more education?: I choose not to answer this question Please select the resources that you would like help with: None Currently or been in a relationship where the following occur: I choose not to answer THRIVE Score: 0 JOSE MARTIN-7 AMB Questionnaire JOSE MARTIN-7 Date JOSE MARTIN - 7 assessed: 03/23/24 Source: Developed by Drs. Michael Whitten, Jasmine Rai, Derrick Youngblood and colleagues, with an educational jackie from [employer] Review of Systems Const Denies fatigue, Denies fever(s), Denies headache(s) and Denies weakness Eyes Details: Sees Dr. Lee for her routine eye exam and diabetes retinopathy screening Denies change in vision ENT Denies dizziness and Denies headache(s) Card Denies chest pain, Denies lightheadedness, Denies palpitations and Denies dyspne a Resp Denies chest congestion, Denies cough, Denies dyspnea and Denies wheezing GI Denies abdominal pain, Denies change in bowel habits and Denies heartburn Denies hematuria, Denies urinary frequency, Denies dysuria and Denies urinary urgency Musc Reports no additional complaints, Denies numbness and Denies tingling Skin/Breast Denies breast mass, Denies lesions and Denies rash Neuro Denies dizziness, Denies headache(s), Denies numbness, Denies Sensory deficit (Neuro), Denies tingling, Denies paresthesias and Denies weakness Psych Reports no additional complaints Endo Denies fatigue, Denies polydipsia, Denies polyuria and Denies palpitations Juvenal/Lymph Denies easy bruising Aller/Immun Denies seasonal rhinorrhea and Denies wheezing Physical exam (Primary Care) Vital Signs: Last Vital Signs Temp 98.6 F 08/16/25 10:43 Pulse 75 08/16/25 10:43 Resp 16 08/16/25 10:43 BP 94/52 L 08/16/25 10:43 Pulse Ox 98 08/16/25 10:43 Oxygen Delivery Method Room Air 08/16/25 10:43 BMI result Body Mass Index 25.5 Tobacco/Smoking Status: Tobacco use Status Tobacco use date assessed 08/16/25 08/16/25 10:51 Patient Tobacco Use Status Former Tobacco user 08/16/25 10:45 e-Cigarette/Vaping Use Never Used 08/16/25 10:45 Thrive Assessment: Date of Thrive Assessment Date Thrive assessed 12/15/24 08/16/25 10:45 Currently or been in a relationship where the following occur: I choose not to answer Const Other: Alert oriented x3 General: comfortable and no acute distress HENMT Ears: external ears normal General nose exam: Normal external nose present Mouth: oropharynx normal and moist mucous membranes Eyes General: appearance normal, both eyes and all related structures Neck Neck: Yes full ROM, Yes no lymphadenopathy and Yes supple Resp Effort & Inspection: normal respiratory effort and able to speak in complete sentences Auscultation: clear to auscultation bilaterally Cardio Rate: regular rate Rhythm: regular rhythm Heart sounds: S1 normal heart sound present and S2 normal heart sound present GI Palpation (GI): Soft to palpation, nontender and no masses Auscultation: normal bowel sounds General: Yes no CVA tenderness Back/Spine/Pelvis Back: no CVA tenderness and No back tenderness Skin General skin exam: no rashes or lesions noted Neuro General: gait normal, tone normal, moves all extremities, Normal light touch and pain sensation and no focal motor deficits Cranial nerves: Yes CN's II-XII intact bilaterally Cognition (Neuro): normal cognition Sensory Exam: No Sensory deficit (Neuro) Extrem General: Yes full ROM, Yes no joint enlargement, Yes no clubbing, cyanosis or edema and Yes no calf tenderness Results Reviewed Results Reviewed: Laboratory Tests 08/09/25 09:02 Estimat Average Glucose 148 Hemoglobin A1c % 6.8 H Name: NeeladalidWandy Age/Sex: 64/F : 1960 Unit#: [id number] Attend Dr: Kimber Hermosillo MD Re08/09/25 Status: DEP REF Location: [facility] Disch: SPEC : [id number] BETI: 08/09/25 STATUS: COMP REQ : [id number] RECD: 08/09/[address]: Kimber Hermosillo MD COMP: 08/09/25 ENTERED: 08/09/[address] [facility] [address]: ORDERED: Met Prof Fast, AST, ALT, Lipid Panel Test Result Flag Reference Sodium 142 135-145 mmol/L Potassium 4.1 3.3-5.1 mmol/L CL 109 H 96-108 mmol/L CO2 27 22-29 mmol/L Gap 10 L 12-20 BUN 12 9-16 mg/dL Creat 0.66 0.5-1.4 mg/dL eGFR > 60 Chronic Kidney Disease: Estimated GFR < 60 mL/min/1.73m2 Severe Kidney Disease: Estimated GFR < 15 mL/min/1.73m2 FBS 104 H 60-99 mg/dL A fasting glucose from 100-125 mg/dl is considered impaired (pre-diabetes). CA 9.2 # 8.4-10.2 mg/dL AST (GOT) 19 5-31 U/L ALT (GPT) 14 0-31 U/L Triglyceride 44 <150 mg/dL Desirable Triglyceride: less than 150 mg/dL Borderline High Triglyceride 150-199 mg/dL High Triglyceride: 200-499 mg/dL Very High Triglyceride: greater than or equal to 5OO mg/dL Cholesterol 136 <200 mg/dL Desirable Cholesterol: less than 200 mg/dL Borderline High Cholesterol: 200-239 mg/dL High Cholesterol: greater than 239 mg/dL LDL Calculated 72 <100 mg/dL Desirable LDL: less than 100 mg/dL Near Optimal/Above Optimal LDL: 110-129 mg/dL Borderline High LDL: 130-159 mg/dL High LDL: 160-189 mg/dL Very High LDL: greater than or equal to 190 mg/dL HDL 56 >40 mg/dL Desirable HDL: greater than 40 mg/dL Coding Level of Care Code Est Pt Level 4 (74402) Complex EM visit Add On G2211 Diagnoses Essential hypertension I10 Dyslipidemia E78.5 Type 2 diabetes mellitus with other diabetic kidney complication E11.29 Assessment & Plan Assessment & Plan (1) Essential hypertension: Code(s): I10 - Essential (primary) hypertension Category: Medical Plan: BLOOD PRESSURE AT GOAL OF LESS THAN 130/80. CONTINUE WITH LISINOPRIL 5 MG DAILY. REINFORCED IMPORTANCE OF FOLLOWING A LOW SODIUM DIET, GETTING REGULAR EXERCISE, AND LOWERING STRESS LEVELS. (2) Dyslipidemia: Code(s): E78.5 - Hyperlipidemia, unspecified Category: Medical Plan: Latest fasting lipids are within normal limits, continued on simvastatin 20 mg at bedtime and Hana 3 fatty acid supplements daily (3) Type 2 diabetes mellitus with other diabetic kidney complication: Code(s): E11.29 - Type 2 diabetes mellitus with other diabetic kidney complication Category: Medical Plan: Better control of diabetes mellitus noted since adding Mounjaro 5 mg once a week, continued on pioglitazone , metformin and Jardiance at same dose. Prior authorization for Mounjaro again completed
== END 2025-08-16 11:55 | disposition home or self-care (01) ==
LOC: HO.HMCC 09:58
PROVIDERS: PCP Internal Medicine; Visit Provider Internal Medicine
DX: I10 Essential (primary) hypertension (principal); E78.5 Hyperlipidemia, unspecified; E11.29 Type 2 diabetes mellitus with other diabetic kidney complication